=== PATIENT | female | born 1965 | race Caucasian/White ===

== ENCOUNTER 2021-02-08 17:33 | Emergency (ER) | payer MEDICAID, SELFPAY ==
--- NOTE | ~2021-02-08 | XR_ITS ---
EXAMINATION: XR knee RT 3V DATE: 02/08/2021 18:56 INDICATION: Right knee pain TECHNIQUE: Three views of the right knee were obtained. COMPARISON: None. FINDINGS: Alignment is normal. No fracture or osteochondral lesion. There is mild tricompartmental os teoarthritis characterized by tiny marginal osteophytes. No joint effusion/synovitis. Soft tissues a re unremarkable. IMPRESSION: 1. No acute osseous abnormality. Reviewed, dictated and finalized at location A.
[2021-02-08 18:23] VITALS: BP 135/62; PULSE 79; RESP 16; TEMP 36.6; O2SAT 100
--- NOTE | 2021-02-08 19:51 | ED.GENADULT ---
HPI - General Adult General Chief complaint: Extremity Injury, Lower Stated complaint: Fall R Knee Injury Time Seen by Provider: 02/08/21 18:38 Source: patient, family and RN notes reviewed Mode of arrival: ambulatory Limitations: no limitations History of Present Illness HPI narrative: Patient is a 55-year-old female who presents to emergency department for evaluation of right knee pain that began yesterday after twisting the knee while stepping down is since had aching pain along the medial aspect of the knee joint with swelling denies other injuries or complaints presents in no distress denies radicular symptoms or paresthesias has history of ligament damage over 20 years ago has not been seen for this complaint Related Data Home Medications Medication Instructions Recorded Confirmed albuterol sulfate [ProAir HFA] INHALATION 02/08/21 buspirone [BuSpar] 5 mg PO HS 02/08/21 cetirizine [Zyrtec] 10 mg PO DAILY 02/08/21 citalopram [Celexa] 10 mg PO DAILY 02/08/21 Allergies Allergy/AdvReac Type Severity Reaction Status Date / Time No Known Allergies Allergy Verified 02/08/21 18:41 Review of Systems Review of Systems: All systems reviewed & are unremarkable except as noted in HPI and below PMFSH Past Medical History Medical History (Updated 02/08/21 @ 19:53 by Maximus Pickard PA-C) Anxiety Social History Social History Gender identity (if verbalized by the patient): Female Exam Narrative: Exam Narrative: GENERAL: Well-appearing, well-nourished, and in no acute distress. HEAD: Normocephalic, atraumatic. EYES: PERRLA and EOMI. ENT: Nares clear, no rhinorrhea or epistaxis. Mucous membranes moist. EXTREMITIES: Tenderness of the medial aspect of the right knee no deformities noted SKIN: Warm, dry, no rash. NEURO: No focal deficits. Alert and oriented x3. Neurovascularly intact PSYCH: Normal mood and affect. Course Course Emergency Course: Patient presented with right knee pain negative x-rays will be referred to primary care and orthopedics given Mike wrap and crutches Vital Signs Vital signs: Vital Signs Temperature 97.8 F 02/08/21 18:23 Pulse Rate 79 02/08/21 18:23 Respiratory Rate 16 02/08/21 18:23 Blood Pressure 135/62 02/08/21 18:23 Pulse Oximetry 100 02/08/21 18:23 Temperature 97.8 F 02/08/21 18:23 Pulse Rate 79 02/08/21 18:23 Respiratory Rate 16 02/08/21 18:23 Blood Pressure 135/62 02/08/21 18:23 Pulse Oximetry 100 02/08/21 18:23 Medical Decision Making MDM Narrative Medical decision making narrative: Patients injury or pain is consistent with musculoskeletal etiology. No signs of neurological or vascular compromise on exam. Compartments and tisues are soft without signs of compartment syndrome. Pain is felt appropriate for further evaluation on an outpatient basis. Patient made aware of x-ray findings Vital Signs Vital Signs: Vital Signs Temperature 97.8 F 02/08/21 18:23 Pulse Rate 79 02/08/21 18:23 Respiratory Rate 16 02/08/21 18:23 Blood Pressure 135/62 02/08/21 18:23 Pulse Oximetry 100 02/08/21 18:23 Temperature 97.8 F 02/08/21 18:23 Pulse Rate 79 02/08/21 18:23 Respiratory Rate 16 02/08/21 18:23 Blood Pressure 135/62 02/08/21 18:23 Pulse Oximetry 100 02/08/21 18:23 Imaging Data Radiologist's impression: ITS Impressions Knee X-Ray 02/08/21 19:18 IMPRESSION: 1. No acute osseous abnormality. Discharge Plan Discharge Clinical Impression: Acute pain of right knee Patient Disposition: Home, Self-Care Condition: Stable Instructions: Antibiotic Form, Arthralgia (ED) Additional Instructions: Wear brace and use crutches. No weight on the affected leg until able to bear weight without pain. Ice and elevate extremity. Pain medication as needed and directed. Follow up with your doctor for further care in the next 7 days. Mark
[2021-02-08 20:00] VITALS: BP 128/66; PULSE 81; RESP 14; O2SAT 98
== END 2021-02-08 20:00 | disposition home or self-care (01) ==
PROVIDERS: Emergency Provider Emergency Medicine; PCP Nurse Practitioner
DX: M25.561 Pain in right knee (principal); F41.9 Anxiety disorder, unspecified; X50.9XXA Other and unspecified overexertion or strenuous movements or postures, initial encounter
CPT/HCPCS: 73562; 99283

== ENCOUNTER 2022-08-20 12:12 | Emergency (ER) | payer BC, SELFPAY ==
[2022-08-20 12:23] VITALS: BP 146/64; PULSE 73; RESP 16; TEMP 35.9; O2SAT 99
--- NOTE | 2022-08-20 13:08 | ED.URI ---
HPI - URI/Sore Throat General Chief Complaint: Upper Respiratory Infection Stated Complaint: COUGH/SOB Time Seen by Provider: 08/20/22 13:08 Source: patient and RN notes reviewed Mode of arrival: ambulatory Limitations: no limitations History of Present Illness HPI Narrative: 57 y/o female presented for c/o sinus congestion and cough for 4 days. Cough is nonproductive. Denies sob, wheezing, n/v/d/f/c. hx asthma, using albuterol inhaler and taking cetirizine. MD elicited complaint: cough Related Data Home Medications Medication Instructions Recorded Confirmed albuterol sulfate 90 mcg/actuation 1 inh inhalation DIRECTED 08/20/22 08/20/22 aerosol inhaler citalopram 40 mg tablet 40 mg DAILY 08/20/22 08/20/22 hydroxyzine pamoate 25 mg capsule 25 mg TID 08/20/22 08/20/22 rosuvastatin 10 mg tablet 10 mg DAILY 08/20/22 08/20/22 Allergies Allergy/AdvReac Type Severity Reaction Status Date / Time No Known Allergies Allergy Verified 08/20/22 12:45 Review of Systems Review of Systems: ROS per HPI [facility] Past Medical History Medical History Anxiety Social History Social History Gender identity (if verbalized by the patient): Female Exam Narrative: GENERAL: Ill-appearing, nontoxic EYES: PERRLA, conjunctivae clear ENT: Mucous membranes moist. TMs pearly samson with dull light reflex bilaterally right TM with clear effusion; no tragal tenderness. Oropharynx erythematous without lesions or exudate, no drooling, no hoarseness, no trismus, uvula midline. CHEST: Clear to auscultation, breath sounds equal. Frequent moist nonproductive cough No wheezing, rhonchi, rales, or stridor. No respiratory distress, speaks in full sentences. HEART: Regular rate and rhythm. No murmur heard. SKIN: Warm, dry, no rash. NEURO: Alert and oriented x3. PSYCH: Normal mood and affect Course Course Emergency Course: Patient is aware of diagnosis, understands and agrees to treatment plan. Anticipatory guidance given. Patient agrees to follow-up as directed and is aware of reasons to seek care at the emergency department. Portions of this record may have been created with voice recognition software Level of Care: Express Care Visit Vital Signs Vital signs: Vital Signs Temperature 96.7 F L 08/20/22 12:23 Pulse Rate 73 08/20/22 12:23 Respiratory Rate 16 08/20/22 12:23 Blood Pressure 146/64 H 08/20/22 12:23 Pulse Oximetry 99 08/20/22 12:23 Oxygen Delivery Room Air 08/20/22 12:23 Temperature 96.7 F L 08/20/22 12:23 Pulse Rate 73 08/20/22 12:23 Respiratory Rate 16 08/20/22 12:23 Blood Pressure 146/64 H 08/20/22 12:23 Pulse Oximetry 99 08/20/22 12:23 Oxygen Delivery Room Air 08/20/22 12:23 reviewed MDM - URI/Sore Throat MDM Narrative Medical decision making narrative: Advised supportive measures for bronchitis and signs/symptoms to go to the ER. She has albuterol inhaler. Rx steroid. Pt is appropriate for outpt treatment and f/u. Differential Diagnosis Differential diagnosis: Likely upper respiratory infection, sinusitis and viral infection Discharge Plan Discharge Clinical Impression: Viral infection Patient Disposition: Home, Self-Care Condition: Stable Instructions: Acute Bronchitis (ED) Additional Instructions: Acute bronchitis can be contagious because it is usually caused by infection with a virus or bacteria. It is usually for a few days but you can be contagious for up to one week. Avoid crowds until you do not have a fever and symptoms are improved Take medication as directed Recommend Flonase spray and Zyrtec (or Claritin/Rukhsana) over the counter Cough syrup may cause drowsiness; avoid driving or take it at night time. Tylenol 1000mg every 8 hours as needed for pain Symptomatic treatment includes: rest, fluids, and increase humidity of the air at h
== END 2022-08-20 13:23 | disposition home or self-care (01) ==
PROVIDERS: Emergency Provider Nurse Practitioner Family
DX: B34.9 Viral infection, unspecified (principal)
CPT/HCPCS: 99213; G0463

== ENCOUNTER 2022-09-27 13:07 | Emergency (ER) | payer BC, SELFPAY ==
--- NOTE | ~2022-09-27 | XR_ITS ---
EXAMINATION: XR shoulder LT min 2V DATE: 09/27/2022 14:00 INDICATION: Left shoulder pain swelling. TECHNIQUE: 4 views of left shoulder were obtained. COMPARISON: None. FINDINGS: Bone alignment is normal. No fracture. There is mild osteoarthritis of glenohumeral joint a nd acromioclavicular joint characterized by tiny osteophytes. IMPRESSION: 1. Mild polyarticular osteoarthritis. Reviewed, dictated and finalized at location A. UCTION LINE
[2022-09-27 13:21] VITALS: BP 128/73; PULSE 78; RESP 16; TEMP 36.2; O2SAT 99
--- NOTE | 2022-09-27 13:51 | ED.EXTPRO ---
HPI - Extremity Problem General Chief complaint: Extremity Problem,Nontraumatic Stated complaint: L. 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 Patient states that the pain is identical to previous flare-ups of willian barry syndrome. Begins in her shoulder and radiates down into her hand, associated with some left lateral neck pain. No chest pain, shortness of breath, fevers or chills, nausea or vomiting, diaphoresis. No exertional component to pain; pain is worse when lying on her left side and when moving the shoulder. She has attempted tylenol without relief; reports relief with smoking marijuana. She has lupus and avoids NSAIDs. Related Data Home Medications Medication Instructions Recorded Confirmed albuterol sulfate 90 mcg/actuation 1 inh inhalation DIRECTED 08/20/22 08/20/22 aerosol inhaler citalopram 40 mg tablet 40 mg DAILY 08/20/22 08/20/22 hydroxyzine pamoate 25 mg capsule 25 mg TID 08/20/22 08/20/22 rosuvastatin 10 mg tablet 10 mg DAILY 08/20/22 08/20/22 Allergies Allergy/AdvReac Type Severity Reaction Status Date / Time No Known Allergies Allergy Verified 08/20/22 12:45 Review of Systems Review of Systems: Gen.: Denies fevers or chills Eyes: Denies eye pain or visual change ENT: Denies congestion Respiratory: Denies shortness of breath or cough CV: Denies chest pain or palpitations GI: Denies abdominal pain nausea, emesis or diarrhea denies burning, urgency, frequency or hematuria Musculoskeletal: Reports right shoulder pain. Neuro: Denies numbness, tingling, weakness or focal weakness Skin: Denies rash Except as documented, all other systems reviewed and negative PMFSH Past Medical History Medical History Anxiety Social History Social History Gender identity (if verbalized by the patient): Female Exam Narrative: APPEARANCE: Well appearing, no pain in distress, well-nourished. Head: Normocephalic and atraumatic. EYES: PERRLA/EOMI, conjunctivae clear NOSE: No nasal drainage EARS: External ear normal in appearance THROAT: Oropharynx is clear. Mucous membranes are moist. NECK: Supple. No adenopathy, no masses. RESPIRATORY: Airway patent, respirations nonlabored. Clear to auscultation bilaterally, no rales, rhonchi, wheezing. CARDIOVASCULAR: Regular rate and rhythm without murmurs, rubs, or gallops. ABDOMINAL: Normoactive bowel sounds. Soft, nontender, nondistended. No rebound tenderness or guarding. MUSCULOSKELETAL: Tender to palpation along left scapula, full range of motion in shoulder without pain. No deformity noted. Strong distal pulses. Spurling's test negative. No midline tenderness along C,T or L-spine. NEURO: Normal speech. No focal neurologic deficits. SKIN: Skin is warm and dry. No rashes. PSYCHIATRIC: Normal affect/mood.. Course Vital Signs Vital signs: Vital Signs Temperature 97.1 F L 09/27/22 13:21 Pulse Rate 78 09/27/22 13:21 Respiratory Rate 16 09/27/22 13:21 Blood Pressure 128/73 09/27/22 13:21 Pulse Oximetry 99 09/27/22 13:21 Oxygen Delivery Room Air 09/27/22 13:21 Temperature 97.1 F L 09/27/22 13:21 Pulse Rate 70 09/27/22 15:17 Respiratory Rate 16 09/27/22 15:17 Blood Pressure 128/73 09/27/22 13:21 Pulse Oximetry 100 09/27/22 15:17 Oxygen Delivery Room Air 09/27/22 13:21 MDM - Extremity (Nontraumatic) MDM Narrative Medical decision making narrative: 57-year-old female here for evaluation of left shoulder pain over the past several days that she attributes to a flareup of Willian Barry syndrome . She is nontoxic-appearin
[2022-09-27] MEDS: HYDROcodone/acetaminophen (*CRX) 5-325 MG TABLET 1 TAB PO (14:40)
[2022-09-27] MEDS: LIDOCAINE 5% PATCH 1 PATCH TRANSDERM (14:40)
[2022-09-27 15:17] VITALS: PULSE 70; RESP 16; O2SAT 100
== END 2022-09-27 15:17 | disposition home or self-care (01) ==
PROVIDERS: Emergency Provider Physician Assistant
DX: M25.512 Pain in left shoulder (principal); F41.9 Anxiety disorder, unspecified; M19.012 Primary osteoarthritis, left shoulder
CPT/HCPCS: 73030; 99283; A9270

== ENCOUNTER 2024-03-08 13:02 | Emergency (ER) | payer MEDICAID, SELFPAY ==
--- NOTE | ~2024-03-08 | XR_ITS ---
EXAMINATION: XR chest 2V DATE: 03/08/2024 13:27 INDICATION: Midsternal chest pain. TECHNIQUE: Frontal and lateral views of the chest were obtained. COMPARISON: None. FINDINGS: There is no pneumonia, pleural effusion, or pneumothorax. The heart size is normal. IMPRESSION: 1. No acute cardiopulmonary disease. Reviewed, dictated and finalized at location E.
--- NOTE | 2024-03-08 13:10 | ECG_ITS ---
Test Date: 2024-03-08 13:16:09 Measurements Intervals [place] Rate: 78 P: 56 OR: 179 QRS: 61 QRSD: 79 T: 73 QT: 364 QTc: 417 Interpretive Statements SINUS RHYTHM NORMAL ELECTROCARDIOGRAM No previous ECG available for comparison Electronically Signed On 03-08-2024 15:31:02 CDT by Collins Bhakta M.D.
[2024-03-08 13:19] VITALS: BP 143/65; PULSE 79; RESP 18; TEMP 36.2; O2SAT 99
[2024-03-08] MEDS: ASPIRIN 81 MG CHEWABLE TABLET 324 MG PO (13:30)
[2024-03-08 13:32] VITALS: PULSE 91
[2024-03-08 13:34] VITALS: BP 157/87; PULSE 78; RESP 12; O2SAT 99
[2024-03-08 14:14] LABS: Hematocrit 41.7 % (37.0-47.0); Mean Corpuscular HGB Conc 33.6 g/dl (32-36); Mean Corpuscular Hemoglobin 27.7 pg (26-34); Mean Corpuscular Volume 82.6 fl (80-100); Mean Platelet Volume 11.9 fl (7.4-10.4); Platelet Count Result 239 k/mm3 (150-375); Red Blood Count 5.05 M/mm3 (4.2-5.4); Red Cell Distribution Width 13.2 % (11.5-14.5); White Blood Count 5.8 K/mm3 (4.5-10.0)
[2024-03-08 14:23] LABS: Alanine Aminotransferase 15 U/L (6-35); Albumin Level 4.6 g/dL (3.5-5.1); Alkaline Phosphatase 86 U/L (38-126); Anion Gap 6 mmol/L (4-12); Aspartate Amino Transferase 24 U/L (14-36); Bilirubin,Total 0.6 mg/dL (0.2-1.3); Blood Urea Nitrogen 14 mg/dL (7-17); Calcium 9.5 mg/dL (8.4-10.2); Carbon Dioxide 26 mmol/L (22-30); Chloride 108 mmol/L (98-107); Estimated CRCL calculation 58 ml/min; Estimated Glomerular Filt Rate > 60; Glucose 90 mg/dL (65-110); Lipase 174 U/L (23-300); Potassium 4.1 mmol/L (3.4-5.0); Sodium 140 mmol/L (137-145)
--- NOTE | 2024-03-08 14:24 | ED.GENADULT ---
HPI - General Adult General Chief complaint: Chest Pain Stated complaint: chest pain Time Seen by Provider: 03/08/24 13:32 History of Present Illness HPI narrative: 58-year-old female presented emergency department for evaluation of intermittent substernal chest pain. Patient reports last night she had onset left substernal chest pain. Patient reports pain of present last night was present when she woke up this morning and patient states the pain has since resolved. Patient denies any radiation of the pain to her back neck or arms. Patient does have prior history of lupus, patient does report a significant family history of coronary artery disease but denies any personal history of coronary artery disease. Patient denies any prior history of PE or DVT. Related Data Home Medications Medication Instructions Recorded Confirmed albuterol sulfate 90 mcg/actuation 1 inh inhalation DIRECTED 08/20/22 08/20/22 aerosol inhaler citalopram 40 mg tablet 40 mg DAILY 08/20/22 08/20/22 hydroxyzine pamoate 25 mg capsule 25 mg TID 08/20/22 08/20/22 rosuvastatin 10 mg tablet 10 mg DAILY 08/20/22 08/20/22 Allergies Allergy/AdvReac Type Severity Reaction Status Date / Time No Known Allergies Allergy Verified 08/20/22 12:45 Review of Systems Review of Systems: All systems reviewed & are unremarkable except as noted in HPI and below PMFSH Past Medical History Medical History Anxiety Social History Social History Gender identity (if verbalized by the patient): Female Exam Narrative: APPEARANCE: Well appearing, no pain, no distress, well-nourished. HEAD: normocephalic, atraumatic. EYES: PERRLA/EOMI, conjunctivae clear. NOSE: Normal no drainage NECK: Supple. No adenopathy, no masses. RESPIRATORY: Airway patent, respirations nonlabored. Clear to auscultation bilaterally, no rales, rhonchi, wheezing. CARDIOVASCULAR: Regular rate and rhythm without murmurs rubs or gallops. ABDOMINAL: Soft, nontender, nondistended, normal bowel sounds MUSCULOSKELETAL: Reproducible left-sided sternal tenderness to palpation NEURO: Alert. Cranial nerves II through XII intact. Grossly intact SKIN: Warm, dry. Normal Color Course Course Emergency Course: Patient was updated results of her workup patient is comfortable the plan for discharge and close follow-up. Vital Signs Vital signs: Vital Signs Temperature 97.1 F L 03/08/24 13:19 Pulse Rate 79 03/08/24 13:19 Respiratory Rate 18 03/08/24 13:19 Blood Pressure 143/65 H 03/08/24 13:19 Pulse Oximetry 99 03/08/24 13:19 Oxygen Delivery Room Air 03/08/24 13:19 Temperature 97.1 F L 03/08/24 13:19 Pulse Rate 86 03/08/24 16:20 Respiratory Rate 18 03/08/24 16:20 Blood Pressure 145/74 H 03/08/24 16:20 Pulse Oximetry 98 03/08/24 16:20 Oxygen Delivery Room Air 03/08/24 13:19 Medical Decision Making MDM Narrative Medical decision making narrative: 58-year-old female presenting to the emergency department for evaluation of left sternal chest pain. Patient is afebrile with no leukocytosis and a stable hemoglobin. Patient has no acute abnormalities on her CMP, patient's D-dimer was not elevated her INR was 1.0. Patient had negative serial troponins. Chest x-ray showed no acute cardiopulmonary abnormality. EKG showed normal sinus rhythm. Low concern for ACS. Suspect costochondritis. Low concern for pulmonary embolism. Patient was updated the results of her workup patient was encouraged of close follow-up with her primary care physician for additional outpatient cardiac testing. Differential Diagnosis Differential Diagnosis: Costochondritis, pleurisy, ACS, pulmonary embolism, pneumonia, pneumothorax Vital Signs Vital Signs: Vital Signs Temperature 97.1 F L 03/08/24 13:19 Pulse Rate 79 03/08/24 13:19 Respiratory Rate 18 06
[2024-03-08 14:27] LABS: Prothrombin Time 13.5 Seconds (11.1-14.7)
[2024-03-08 14:28] LABS: Partial Thromboplastin Time 25.3 Seconds (22.3-36.8)
[2024-03-08 14:34] LABS: Troponin I < 0.012 ng/mL (0.000-0.034)
[2024-03-08 15:05] LABS: Eosinophils Absolute Manual 0.87 K/mm3 (0.02-0.50); Eosinophils Percent Manual 15 % (0-4); Lymphocytes Absolute Manual 1.68 K/mm3 (1.1-4.5); Monocytes Absolute Manual 0.29 K/mm3 (0.1-0.90); Monocytes Percent Manual 5 % (3-9); Neutrophils Percent Manual 51 % (46-73); Platelet Estimate Adequate (Adequate); Total Cells Counted 100
[2024-03-08 15:06] LABS: Schistocytes None Seen
[2024-03-08 15:14] LABS: D Dimer < 0.27 ug/mL (<0.48)
[2024-03-08 15:22] VITALS: BP 140/64; PULSE 73; RESP 19; O2SAT 99
[2024-03-08] MEDS: ACETAMINOPHEN 325 MG TABLET 650 MG PO (15:41)
--- NOTE | 2024-03-08 16:07 | ECG_ITS ---
Test Date: 2024-03-08 16:13:54 Measurements Intervals [place] Rate: 71 P: 48 [place]: 180 QRS: 49 QRSD: 86 T: 75 QT: 394 QTc: 429 Interpretive Statements SINUS RHYTHM Compared to ECG 03/08/2024 13:16:09 No significant changes Electronically Signed On 03-09-2024 11:45:26 CDT by Ki Montoya M.D.
[2024-03-08 16:20] VITALS: BP 145/74; PULSE 86; RESP 18; O2SAT 98
[2024-03-08 16:43] LABS: Troponin I < 0.012 ng/mL (0.000-0.034)
== END 2024-03-08 17:54 | disposition home or self-care (01) ==
PROVIDERS: Emergency Provider Emergency Medicine; PCP Family Medicine
DX: R07.89 Other chest pain (principal); F41.9 Anxiety disorder, unspecified
CPT/HCPCS: 36415; 71046; 80053; 83690; 84484; 85025; 85380; 85610; 85730; 93005; 99284; A9270

== ENCOUNTER 2025-03-08 13:24 | Observation (INO) | payer OTHER, SELFPAY ==
[2025-03-08] VITALS (15 sets, daily range): BP systolic 103–167; BP diastolic 63–94; PULSE 77–118; RESP 12–30; TEMP 36.5–36.9; O2SAT 97–100; BMI 33.3
--- NOTE | ~2025-03-08 | XR_ITS ---
XR chest 2V Ordering provider: Marco A Saunders MD History: 59 years Female with . chest pain . Comparison: March 08, 2024 FINDINGS: MEDIASTINUM: The cardiac silhouette is not enlarged. LUNGS: No infiltrates, effusions or pneumothorax. OTHER: No free air under the diaphragm. IMPRESSION: No acute cardiopulmonary pathology. Reviewed, dictated and finalized at location A.
--- NOTE | 2025-03-08 13:26 | ECG_ITS ---
Test Date: 2025-03-08 13:32:41 Measurements Intervals [place] Rate: 108 P: 55 NV: 211 QRS: 47 QRSD: 79 T: 55 QT: 334 QTc: 449 Interpretive Statements SINUS TACHYCARDIA WITH FIRST DEGREE AV BLOCK BASELINE ARTIFACT- I, III, AVR ABNORMAL ECG Compared to ECG 03/08/2024 16:13:54 HEART RATE HAS INCREASED Electronically Signed On 03-08-2025 14:12:17 CDT by Janak Degroot D.O.
[2025-03-08] MEDS: ASPIRIN 81 MG CHEWABLE TABLET 324 MG PO (13:50)
[2025-03-08 13:53] LABS: Basophils Percent Auto 0.4 % (0.2-1.2); Eosinophils Absolute Auto 0.2 K/mm3 (0-0.3); Eosinophils Percent Auto 4.2 % (0-4.4); Hematocrit 42.8 % (37.0-47.0); Immature Granulocyte Absolute 0.01 K/mm3 (0.00-0.031); Immature Granulocyte Percent A 0.2 % (0-0.5); Lymphocytes Percent Auto 25.6 % (18.3-44.2); Mean Corpuscular HGB Conc 32.7 g/dl (32-36); Mean Corpuscular Hemoglobin 27.1 pg (26-34); Mean Corpuscular Volume 82.8 fl (80-100); Mean Platelet Volume 10.7 fl (7.4-10.4); Monocytes Absolute Auto 0.3 K/mm3 (0.1-0.6); Monocytes Percent Auto 4.9 % (2.6-8.5); Neutrophils Absolute Auto 3.5 K/mm3 (1.3-6.7); Neutrophils Percent Auto 64.7 % (45.5-73.1); Platelet Count Result 218 k/mm3 (150-375); Red Blood Count 5.17 M/mm3 (4.2-5.4); Red Cell Distribution Width 13.6 % (11.5-14.5); White Blood Count 5.5 K/mm3 (4.5-10.0)
[2025-03-08 14:03] LABS: Alanine Aminotransferase 18 U/L (6-35); Albumin Level 4.1 g/dL (3.5-5.1); Alkaline Phosphatase 81 U/L (38-126); Anion Gap 9 mmol/L (4-12); Aspartate Amino Transferase 26 U/L (14-36); Bilirubin,Total 0.4 mg/dL (0.2-1.3); Blood Urea Nitrogen 13 mg/dL (7-17); Calcium 9.1 mg/dL (8.4-10.2); Carbon Dioxide 21 mmol/L (22-30); Chloride 109 mmol/L (98-107); Estimated CRCL calculation 63 ml/min; Estimated Glomerular Filt Rate > 60; Glucose 98 mg/dL (65-110); Lipase 223 U/L (23-300); Potassium 3.7 mmol/L (3.4-5.0); Sodium 139 mmol/L (137-145); Total Protein 7.4 g/dL (6.3-8.2)
[2025-03-08] MEDS: SODIUM CHLORIDE 0.9% IV 1,000 ML 999 ML IV CONT (14:03)
[2025-03-08 14:06] LABS: Partial Thromboplastin Time 25.8 Seconds (22.3-36.8); Prothrombin Time 13.6 Seconds (11.1-14.7)
[2025-03-08 14:15] LABS: Troponin I < 0.012 ng/mL (0.000-0.034)
[2025-03-08 14:31] LABS: Magnesium 1.9 mg/dL (1.6-2.3)
--- NOTE | 2025-03-08 14:37 | ED.ARRPALP ---
HPI - Arrhythmia/Palpitations General Chief Complaint: Arrhythmia/Palpitations Stated Complaint: CP - self-converted SVT Time Seen by Provider: 03/08/25 13:58 Source: patient Mode of arrival: ambulatory Limitations: no limitations History of Present Illness HPI narrative: Patient is a 59 y/o female, with PMH of anxiety/depression, who presents to the ED via EMS with report of palpations/CP. Patient reports she was walking through [employer] when she began feeling dizzy, lightheaded, diaphoretic, nauseous, short of breath, CP, near-syncopal. She went out to her car. Began having worsening SOB, CP. EMS was called. Upon EMS's arrival, she was noted to be in SVT with HRs in the 240s. Patient denied feeling palpitations. EMS was about to administer adenosine before patient spontaneously converted to sinus tachy. Patient feeling improved currently. Denies current CP, SOB. Denies current dizziness. Denies previous history of heart issues. States she has had intermittent palpitations in the past which have always been very brief. Has never had SVT before that she is aware of. Denies recent cough or cold sx's, pain/swelling in legs, fevers. Related Data Home Medications ?Medication ?Instructions ?Recorded ?Confirmed ?Last Taken ?Type albuterol sulfate 90 mcg/actuation 1 inh inhalation DIRECTED 08/20/22 08/20/22 Unknown History aerosol inhaler citalopram 40 mg tablet 40 mg DAILY 08/20/22 08/20/22 Unknown History hydroxyzine pamoate 25 mg capsule 25 mg TID 08/20/22 08/20/22 Unknown History rosuvastatin 10 mg tablet 10 mg DAILY 08/20/22 08/20/22 Unknown History Allergies Allergy/AdvReac Type Severity Reaction Status Date / Time No Known Allergies Allergy Verified 08/20/22 12:45 Review of Systems Review of Systems: All systems reviewed & are unremarkable except as noted in HPI. All systems reviewed & are unremarkable except as noted in HPI and below PMFSH Past Medical History Medical History Anxiety Social History Social History Gender identity (if verbalized by the patient): Female Exam Narrative: GENERAL: Anxious appearing, well-nourished, non-toxic, in no acute distress. HEAD: Normocephalic, atraumatic. RESPIRATORY: Airway patent, respirations nonlabored. Clear to auscultation bilaterally, no rales, rhonchi, wheezing. No focal lung sounds. CARDIOVASCULAR: Borderline tachycardic with regular rhythm without murmurs, rubs, or gallops. MUSCULOSKELETAL: Moves all extremities. No gross deformities. SKIN: Warm, dry, normal color. NEURO: A&O X3. Speech clear. Cranial nerves II-XII grossly intact. Steady gait. Diffusely tremulous, no ataxic movements. PSYCHIATRIC: Appropriate mood and affect. Normal interaction. Course Vital Signs Vital signs: Vital Signs Temperature 98.0 F 03/08/25 13:27 Pulse Rate 118 H 03/08/25 13:27 Respiratory Rate 16 03/08/25 13:27 Blood Pressure 155/94 H 03/08/25 13:27 Pulse Oximetry 99 03/08/25 13:27 Oxygen Delivery Room Air 03/08/25 13:27 Temperature 98.0 F 03/08/25 13:27 Pulse Rate 95 03/08/25 15:21 Respiratory Rate 14 03/08/25 15:21 Blood Pressure 143/88 H 03/08/25 13:46 Pulse Oximetry 99 03/08/25 15:21 Oxygen Delivery Room Air 03/08/25 13:27 MDM - Arrhythmia/Palpitations MDM Narrative Medical decision making narrative: Patient presented to ED with palpitations, CP/SOB, reportedly found to be in SVT by EMS. Reportedly spontaneously converted prior to arrival. No telemetry reports from EMS to review. Patient very mildly tachycardic upon arrival. Sinus on monitor and EKG. No significant concerning ischemic changes. Patient feeling improved currently. Laboratory studies are otherwise reassuring. No leukocytosis or anemia. CMP is unremarkable. Stable electrolytes. Stable kidney function. Normal magnesium. TSH within normal range. Troponin undetectable. Chest x-ray is clear. Repeat EKG at 3 hr azeem without concerning ischemic changes however 3 hour troponin did result elevated at 0.041. She is reporting intermittent trouble breathing since being in the ED, but continues to deny CP at this time. Given elevated troponin in the presence of chest pain today, possible but not definitive SVT, will admit for further cardiac eval, continued trending of trops. Discussed case with Tianna Solorzano NP hospitalist, accepted patient for admission. Patient and family in agreement with plan and need for admission. Medical Records Attestation: I reviewed the patient's medical records. Lab Data Attestation: I reviewed the patient's lab results. 03/08/25 13:47 03/08/25 13:47 Labs: Lab Results 03/08/25 03/08/25 Range/Units 13:47 16:34 WBC 5.5 (4.5-10.0) K/mm3 RBC 5.17 (4.2-5.4) M/mm3 Hgb 14.0 (12.0-15.0) g/dL Hct 42.8 (37.0-47.0) % MCV 82.8 (80-100) fl MCH 27.1 (26-34) pg MCHC 32.7 (32-36) g/dl RDW 13.6 (11.5-14.5) % Plt Count 218 (150-375) k/mm3 MPV 10.7 H (7.4-10.4) fl Immature Gran % (Auto) 0.2 (0-0.5) % Neut % (Auto) 64.7 (45.5-73.1) % Lymph % (Auto) 25.6 (18.3-44.2) % [place] % (Auto) 4.9 (2.6-8.5) % Eos % (Auto) 4.2 (0-4.4) % Baso % (Auto) 0.4 (0.2-1.2) % Lymph # (Auto) 1.40 (0.9-3.2) K/mm3 [place] # (Auto) 0.3 (0.1-0.6) K/mm3 Eos # (Auto) 0.2 (0-0.3) K/mm3 Baso # (Auto) 0.0 (0.0-0.1) K/mm3 Abs Immat Gran (auto) 0.01 (0.00-0.031) K/mm3 Absolute Neuts (auto) 3.5 (1.3-6.7) K/mm3 Absolute Nucleated RBC 0.000 (0.0-0.012) K/mm3 Nucleated RBC % 0.0 (0.0-0.2) % PT 13.6 (11.1-14.7) Seconds INR 1.0 APTT 25.8 (22.3-36.8) Seconds D-Dimer 0.33 (<0.48) ug/mL Sodium 139 (137-145) mmol/L Potassium 3.7 (3.4-5.0) mmol/L Chloride 109 H (98-107) mmol/L Carbon Dioxide 21 L (22-30) mmol/L Anion Gap 9 (4-12) mmol/L BUN 13 (7-17) mg/dL Creatinine 0.81 (0.7-1.0) mg/dL Estim Creat Clear Calc 63 ml/min Estimated GFR > 60 (59 - ) Glucose 98 (65-110) mg/dL Calcium 9.1 (8.4-10.2) mg/dL Magnesium 1.9 (1.6-2.3) mg/dL Total Bilirubin 0.4 (0.2-1.3) mg/dL AST 26 (14-36) U/L ALT 18 (6-35) U/L Alkaline Phosphatase 81 (38-126) U/L Troponin I < 0.012 0.041 H* D (0.000-0.034) ng/mL Total Protein 7.4 (6.3-8.2) g/dL Albumin 4.1 (3.5-5.1) g/dL Lipase 223 (23-300) U/L TSH 2.870 (0.465-4.680) uIU/mL Urine Color Yellow (Yellow) Urine Appearance Clear (Clear) Urine pH 7.0 (5.0-9.0) Ur Specific [place] 1.009 (1.001-1.035) Urine Protein Negative (Negative) mg/dL Urine Glucose (UA) Negative (Negative) mg/dL Urine Ketones Negative (Negative) mg/dL Ur Blood (Man) Negative (Negative) Urine Nitrate Negative (Negative) Urine Bilirubin Negative (Negative) Urine Urobilinogen 0.2 (<2.0) mg/dL Leukocyte Esterase Rfl Trace H (Negative) TONYA/UL Urine RBC 0-2 (0-2) /hpf Urine WBC 0-5 (0-3) /hpf Ur Squamous Epith Cells None seen (Few) /hpf Urine Bacteria None seen /hpf Urine Casts 0-2 Urine Opiates Screen Negative (Negative) Urine Methadone Screen Negative (Negative) Ur Barbiturates Screen Negative (Negative) Ur Phencyclidine Scrn Negative (Negative) Ur Amphetamine Screen Negative (Negative) U Benzodiazepines Scrn Negative (Negative) Urine Cocaine Screen Negative (Negative) U Cannabinoids Screen Positive A (Negative) Imaging Data Attestation: I personally reviewed and interpreted this imaging study as follows: Radiologist's impression: ITS Impressions Chest X-Ray 03/08/25 14:47 IMPRESSION: No acute cardiopulmonary pathology. ECG Data EKG #1: Attestation: I personally reviewed and interpreted this ECG as follows: ECG completion date: 03/08/25 ECG completion time: 13:32 EKG Interpretation: tachycardia (108), sinus rhythm (first degree AV block) and non-specific ST changes Discharge Plan Discharge Clinical Impression: Elevated troponin, Supraventricular tachycardia, Near syncope Chest pain Qualifiers: Chest pain type: unspecified Qualified Code(s): R07.9 - Chest pain, unspecified Patient Disposition: Still a Patient Condition: Stable Patient Language: Peruvian Prescriptions: No Action citalopram 40 mg tablet 40 mg DAILY albuterol sulfate 90 mcg/actuation HFA aerosol inhaler 1 inh INHALATION DIRECTED hydroxyzine pamoate 25 mg capsule 25 mg TID rosuvastatin 10 mg tablet 10 mg DAILY benzonatate 200 mg capsule 200 mg PO TID PRN (Reason: cough) Qty: 20 0RF methylprednisolone [Medrol (Carmelo)] 4 mg tablets,dose pack See Rx Instructions .ROUTE .COMPLEX Qty: 21 0RF Rx Instructions: orally per package directions Follow-up/Referrals: Harms,Philippe Eddy M.D. [Primary Care Provider] -
[2025-03-08 15:10] LABS: D Dimer 0.33 ug/mL (<0.48)
--- OUTSIDE RECORDS SUMMARY | 2025-03-08 15:39 | XMS_ITS | Encounter Summary ---
Author Organization [facility] Healthcare Address [address] [place] [address] Care Team Providers Care Panel Monitor Name Role Phone Philippe Garcia MD Primary Care Provider [phone] Reason for Visit * Reason Onset Date Comments Symptom Based Call 02/11/2025 Encounter Details Date Type Department Care Team (Late st Contact Info) Description 02/11/2025 Telephone [facility] [address] [id number] Phiilppe Garcia MD [address] [place] [id number] Symptom Based Call Social History Tobacco Use Types Packs/Day Years Used Date Smoking Tobacco: Never Smokeless Tobacco: Never Alcohol Use Standard Drinks/Week Comments Yes 0 (1 standard drink = 0.6 oz pur e alcohol) AUDIT-C Answer Date Recorded Q1: How often do you have a drink containing alcohol? Never 05/21/2024 Q2: How many drinks containi ng alcohol do you have on a typical day when you are drinking? Patient does not drink Q3: How often do you have si x or more drinks on one occasion? 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 Thanks * Telephone Encounter - Sree December - 02/11/2025 9:38 AM CDT Symptom Based Call Chief Complaint(s): thrush in mouth/ white coat on tongue Duration: 1 dya What type of symptom(s) is the patient experiencing? Non-Emergent. Is this a new or reoccurring symptom(s)? new What have you tried to help your symptom(s)? Nothing Why was appointment not scheduled? Patient seeking care without an appointment; appointment was offered by [facility]. Additional Comments: please call/ patient wanted medication to be sent / I looked for an appointment Does message need to be routed? Yes-Action Needed documented in this encounter Plan of Treatment Not on file documented as of this encounter Visit Diagnoses Not on filedocumented in this encounter Care Teams Panel Monitor Relationship Specialty Start Date End Date Philippe Garcia MD [address] [place] [address] PCP - General Family Medicine 01/21/23 documented as of this encounter
--- OUTSIDE RECORDS SUMMARY | 2025-03-08 15:39 | XMS_ITS | Referral Summary ---
Author Organization [facility] Address [address] [place] [phone] Care Team Providers Care Acquisition Consultant Name Role Phone Philippe Garcia MD Primary Care Provider [phone] Encounters Date Type Department Care Team Description 02/11/2025 Orders Only [facility] [address] [phone] Philippe Garcia MD 02/11/2025 Telephone [facility] [address] [phone] Philippe Garcia MD Symptom Based Call 02/04/2025 9:39 AM CDT - 02/04/2025 11:59 PM CDT Hospital En[facility] [address] [place] [phone] Discharge Disposition: Discharge to home or self care 02/04/2025 9:39 AM CDT - 02/04/2025 11:59 PM CDT Hospital Encounter [facility] [address] [place] [phone] Discharge Disposition: Discharge to home or self care 02/04/2025 9:30 AM CDT Office Visit [facility] at [address] [phone] Jocelin John PA Nontraumatic tear of left rotator cuff, unspecified tear extent (Primary Dx); Neck pain 01/19/2025 Telephone [facility] [address] [phone] Philippe Garcia MD Medication Request 12/15/2024 Orders Only [facility] [address] [phone] Philippe Garcia MD 12/14/2024 Telephone [facility] [address] [phone] Philippe Garcia MD Symptom Based Call from Last 3 Months Allergies Active Allergy Reactions Criticality Noted Date Comments Cigarette Smoke Eye irritation Low 01/14/2023 Grass Pollen Eye irritation,Sneezing Low 01/14/2023 Latex Rash Medium 02/08/2019 Latex powder Medications cetirizine (ZyrTEC) 10 mg tablet TAKE 1 TABLET BY MOUTH DAILY 90 tablet 01/24/20 22 Active albuterol HFA (ProAir HFA) 90 mcg/actuation inhalerIndicat ions:wheezing inhale 2 puff by inhalation route every 4 - 6 hours as needed 1 each 5 04/05/20 24 Active rosuvastatin (CRESTOR) 10 mg tablet Take 1 tablet (10 mg total) by mouth daily 90 tablet 3 04/15/20 24 025 Active albuterol 2.5 mg /3 mL (0.083 %) nebulizer solution INHALE THE CONTENTS OF 1 VIAL VIA NEBULIZER 4 TIMES DAILY NEEDED FOR WHEEZE/SHORTNE SS OF BREATH 300 mL 2 08/18/20 24 Active benzonatate (TESSALON) 100 mg capsuleIndicat ions:Cough Take 1 capsule (100 mg total) by mouth 3 (three) times a day as needed for cough 42 capsule 11/30/19 25 Active hydrOXYzine (VISTARIL) 25 mg capsule TAKE 1 CAPSULE BY MOUTH 3 TIMES A DAY NEEDED FOR ANXIETY 270 capsule 1 12/10/19 25 Active citalopram (CeleXA) 10 mg tablet Take 0.5 tablets (5 mg total) by mouth daily 90 tablet 4 05/01/20 25 026 Active methylPREDNISo lone (MEDROL DOSEPACK) 4 mg DosepackIndica tions:Anti-inf lammatory follow package directions 21 tablet 02/05/20 25 Active cyclobenzaprin e (FLEXERIL) 10 mg tabletIndicati ons:Muscle Spasm Take 1 tablet (10 mg total) by mouth 3 (three) times a day as needed for muscle spasms 30 tablet 02/05/20 25 Active nystatin 100,000 unit/mL suspension Take 5 mL (500,000 Units total) by mouth 4 (four) times a day Swish in mouth and spit out. 280 mL 02/12/20 25 025 Active ergocalciferol (VITAMIN D) 50,000 unit capsule Take 1 capsule by mouth once a week 8 capsule 02/22/20 25 Active traMADoL (ULTRAM) 50 mg tablet TAKE 1 TABLET BY MOUTH EVERY 6 HOURS 20 tablet 02/22/20 25 Active ergocalciferol (VITAMIN D) 50,000 unit capsule Take 1 capsule (50,000 Units total) by mouth once a week 12 capsule 1 04/15/20 24 025 Discontinued traMADoL (ULTRAM) 50 mg tablet Take 1 tablet (50 mg total) by mouth every 6 (six) hours 20 tablet 12/16/19 25 025 Discontinued Active Problems Problem Noted Date Diagnosed Date Viral URI with cough 11/29/2024 Assessment & Plan (11/29/2024 2:22 PM CDT): Swabs negative for flu, COVID, RSV today. Reviewed home care measures. Also refilled Tessalon. Liberalize albuterol use for the next 2 days. Make sure to drink plenty of fluids and rest. If worsening or not resolving RTC. Red flags reviewed. Vitamin D deficiency 11/29/2024 Assessment & Plan (11/29/2024 2:22 PM CDT): Vitamin-D level ordered. Will plan accordingly once results are received. Mild intermittent asthma with exacerbation 07/07 Assessment & Plan (07/07/2024 11:45 AM CDT): Liberalize albuterol inhaler use. Will send in prednisone taper. Tessalon also E scribed. Push p.o. hydration. RTC if worsening or not resolving. Red flags reviewed. Fibromyalgia 06/22/2024 Assessment & Plan (07/07/2024 11:44 AM CDT): Difficulty getting duloxetine from the pharmacy. We will call the pharmacy today. Will continue to monitor. She is following with Rheumatology as well. Assessment & Plan (06/22/2024 12:34 PM CDT): New diagnosis. Will stop fluoxetine and start duloxetine. Reviewed conservative measures. Information printed. She is following with Rheumatology as well. Follow-up as scheduled in September to monitor response. Of course sooner for any concerns. Acute pain of right knee 05/04/2024 Acute shoulder pain 05/04/2024 Atypical chest pain 05/04/2024 Viral infection 05/04/2024 Screening mammogram for breast cancer 04/05/2024 Assessment & Plan (04/05/2024 10:59 AM CDT): Mammogram ordered. Will plan accordingly once results are received. Colon cancer screening 04/05/2024 Assessment & Plan (04/05/2024 11:01 AM CDT): Referral to GI for colonoscopy. IFG (impaired fasting glucose) 04/05/2024 Assessment & Plan (11/29/2024 2:23 PM CDT): Fasting glucose 86 when last checked. Will continue to monitor. Assessment & Plan (04/05/2024 11:02 AM CDT): Reports history of impaired fasting glucose. Will check A1c with next set of labs. Impacted cerumen of left ear 04/05/2024 Assessment & Plan (04/05/2024 10:52 AM CDT): Canal cleared. RTC for any recurrent concerns. BMI 29.0-29.9,adult 12/06/2020 Assessment & Plan (12/06/2020 9:48 AM CDT): - BMI too high, counseled on dietary approaches to lowering BMI, exercise approaches to lowering BMI, risk to health due to elevated BMI, healthy BMI level to trend toward. Biceps tendinitis, left 01/28/2020 Nontraumatic tear of left rotator cuff 9 Neck pain 02/02/2019 Pure hyperglyceridemia 10/19/2018 Assessment & Plan (07/07/2024 11:44 AM CDT): Continue with rosuvastatin. Will check lipid panel with next set of labs. Assessment & Plan (04/05/2024 10:39 AM CDT): Has not taken crestor for one year. Lipid panel ordered. Will plan accordingly once results received. Assessment & Plan (10/19/2018 12:54 PM CATERING ASSOCIATE): - continue to work toward eating more fiber, fresh vegetables and fruits - continue to work toward eating less meat, less fried foods, less fat - increase activity as tolerated - continue medications for cholesterol reduction. Positive HAYLEE (antinuclear antibody) 10/14/2017 Assessment & Plan (10/19/2017 8:41 PM CATERING ASSOCIATE): Encouraged to see pediatric physical therapy assistant for evaluation. Restless leg syndrome 03/04/2017 Assessment & Plan (10/19/2017 8:40 PM CATERING ASSOCIATE): Plan to start Neurontin 300 mg at directed. Assessment & Plan (03/05/2017 7:12 PM CDT): Has been awakening at night due to leg cramping and discomfort. Plan to start Elavil 25mg at [facility]. Will check Vitamin B12 and ferritin level. Anxiety 03/04/2017 Assessment & Plan (04/05/2024 10:37 AM CDT): Restart citalopram. Can uptitrate to 20mg daily after 4 weeks if needed. Will monitor response. Red flags reviewed. Assessment & Plan (12/06/2020 9:48 AM CDT): continue citalopram Condition stable Assessment & Plan (03/24/2019 11:11 AM CDT): - continue current medications and follow up for any changes Assessment & Plan (10/19/2018 12:55 PM CATERING ASSOCIATE): - condition stable - continue current medications Assessment & Plan (03/30/2018 7:05 AM CDT): - she will continue her citalopram and buspirone Assessment & Plan (10/19/2017 8:39 PM CATERING ASSOCIATE): Controlled with Citalopram-will continue at 40 mg daily. Assessment & Plan (03/05/2017 7:12 PM CDT): Continues on Citalopram. Using Xanax prn. Primary insomnia 03/04/2017 Assessment & Plan (10/19/2017 8:42 PM CATERING ASSOCIATE): Hope will improve with addition of gabapentin. Assessment & Plan (03/05/2017 7:13 PM CDT): Hope will improve with elavil started. Discussed sleep hygiene Rhinitis 02/05/2014 Overview (12/27/2016): Rhinitis Asthma 02/05/2014 Overview (12/26/2016): Asthma Assessment & Plan (04/05/2024 10:38 AM CDT): Continue PRN albuterol. Well controlled. Requesting referral to Pulmonology. Referral placed. Red flags reviewed. Assessment & Plan (03/24/2019 11:12 AM CDT): Will refill albuterol, if any worsening return to clinic for evaluation Assessment & Plan (10/19/2018 12:55 PM CATERING ASSOCIATE): - condition stable - continue current medications Assessment & Plan (10/19/2017 8:40 PM CATERING ASSOCIATE): Asthma is stable. Allergies have been stable. The patient is experiencing no daytime asthma symptoms. She is experiencing no nighttime asthma symptoms. Discussed monitoring symptoms and use of quick-relief medications and contacting us early in the course of exacerbations. Warning signs of respiratory distress were reviewed with the patient. Assessment & Plan (03/05/2017 7:13 PM CDT): Asthma is unchanged.stable. The patient is experiencing no daytime asthma symptoms. She is experiencing no nighttime asthma symptoms. Discussed monitoring symptoms and use of quick-relief medications and contacting us early in the course of exacerbations. Lupus Assessment & Plan (04/05/2024 10:59 AM CDT): Labs ordered. Highly encouraged to follow-up with rheumatology as we discussed last year. She does have health insurance now. Advised her to contact her health insurance provider to see who they recommend for rheumatology. She is agreeable with plan and states understanding. Assessment & Plan (12/06/2020 9:49 AM CDT): Will update her labs Condition stable at this time based on symptoms Resolved Problems Problem Noted Date Diagnosed Date Resolved Date BMI 31.0-31.9,adult 10/19/2017 07/03/20 21 Assessment & Plan (07/28/2019 9:47 AM CATERING ASSOCIATE): - BMI too high, counseled on dietary approaches to lowering BMI, exercise approaches to lowering BMI, risk to health due to elevated BMI, healthy BMI level to trend toward. Assessment & Plan (05/11/2019 11:23 AM CDT): - BMI too high, counseled on dietary approaches to lowering BMI, exercise approaches to lowering BMI, risk to health due to elevated BMI, healthy BMI level to trend toward. Assessment & Plan (03/23/2019 2:33 PM CDT): - BMI too high, counseled on dietary approaches to lowering BMI, exercise approaches to lowering BMI, risk to health due to elevated BMI, healthy BMI level to trend toward. Assessment & Plan (10/19/2018 12:55 PM CATERING ASSOCIATE): - BMI too high, counseled on dietary approaches to lowering BMI, exercise approaches to lowering BMI, risk to health due to elevated BMI, healthy BMI level to trend toward. Assessment & Plan (03/30/2018 7:05 AM CDT): - BMI too high, counseled on dietary approaches to lowering BMI, exercise approaches to lowering BMI, risk to health due to elevated BMI, healthy BMI level to trend toward. Assessment & Plan (10/19/2017 8:43 PM CATERING ASSOCIATE): Obesity is worsening. Increased by 5 lbs Discussed the patient's BMI. The BMI is above average; BMI management plan is completed. General weight loss/lifestyle modification strategies discussed (elicit support from others; identify saboteurs; non-food rewards, etc). Immunizations Immunization Administration Dates Next Due Hep A, Adult 10/28/2016 Influenza, Quadrivalent, Spl it, Intramuscular 07/21/2016 Influenza, Quadrivalent, Spl it, Preservative Free, Intramuscular 07/25/2021,06/13/2020,06/20/2019,06/23 Influenza, Split 06/26/2010 Influenza, Trivalent, Cell Culture-based MDCK, Preservative Free, Antibiotic Free, Intramuscular 06/09/2024 Influenza, Trivalent, IM (MDV) 07/11/2014,2008 Influenza, Trivalent, Preser vative Free, Intramuscular 10/02/2013 Influenza, Unspecified 04/05/2024(Deferr ed: Patient Refused),05/23/2023(Deferred: Patient Refused),01/14/2023(Deferred: Patient Refused),09/22/2022(Deferred: Patient Refused),09/22/2021(Deferred: Patient Refused),10/02/2013 Pfizer SARS-CoV-2 Monovalent Vaccination (12+ Yrs) PURPLE 09/13/2021,07/16/2021 Tdap 12/10/2011 Social History Tobacco Use Types Packs/Day Years [...] on file Legal Sex Female 7:35 PM CATERING ASSOCIATE Gender Identity Not on file Sexual Orientation Not on file 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 on file Not on file Not on file Last Filed Vital Signs Vital Sign Reading Time Taken Comments Blood Pressure 104/68 11/29/2024 11:02 AM CDT Pulse 89 11/29/2024 11:02 AM CDT Temperature 37.1 C (98.8 F) 11/29/2024 11:02 AM CDT Respiratory Rate 18 11/29/2024 11:02 AM CDT Oxygen Saturation 97% 11/29/2024 11:02 AM CDT Inhaled Oxygen Concentration - - Weight 81.2 kg (179 lb) 02/04/2025 9:14 AM CDT Height 157.5 cm (5' 2.01) 02/04/2025 9:14 AM CD T Body Mass Index 32.73 02/04/2025 9:14 AM CDT Plan of Treatment Not on file Procedures Procedure Name Priority Date/Time Associated Diagnosis Comments XR SPINE CERVICAL 2 OR 3 VIEWS Schedule Routine, Read Routine (OP Routine) 02/04/2025 2:57 PM CDT Neck pain XR SHOULDER LEFT 2 OR MORE VIEWS Schedule Routine, Read Routine (OP Routine) 02/04/2025 2:55 PM CDT Nontraumatic tear of left rotator cuff, unspecified tear extent [place] ARTHROCENTESIS ASPIR&/INJ MAJOR JT/BURSA W/O US Routine 02/04/2025 9:30 AM CDT Nontraumatic tear of left rotator cuff, unspecified tear extent HEPATITIS C ANTIBODY Routine 05/21/2024 4:42 PM CDT Positive HAYLEE (antinuclear antibody) Musculoskeletal pain Other fatigue Skin rash from Last 3 Months or Most Recently Relevant to Health Maintenance Results * XR Spine Cervical 2 or 3 Views (02/04/2025 2:57 PM CDT) Anatomical Region Laterality Modality Spine N/A Computed Radiogr aphy Narrative 02/04/2025 2:57 PM CDT My interpretation of her x-rays today: Two views of her C-spine including AP and lateral show straightening of the C-spine with loss of normal lordosis. I do not appreciate any acute bony abnormality or dislocation. us Jocelin [facility] IMG XR PROCEDURES Final Resu lt * XR Shoulder Left 2 or More Views (02/04/2025 2:55 PM CDT) Anatomical Region Laterality Modality Upper Extremities, Shoulder Left Comp uted Radiography Narrative 02/04/2025 2:55 PM CDT My interpretation of her x-rays today: Four views of her shoulder including AP, Grashey, scapular Y, and axillary show mild degenerative changes at the AC joint as well as the glenohumeral joint. I do not appreciate any acute bony abnormality. us Jocelin [facility] IMG XR PROCEDURES Final Resu lt * NH ARTHROCENTESIS ASPIR&/INJ MAJOR JT/BURSA W/O US (02/04/2025 9:30 AM CDT) Narrative Jocelin John PA - 02/04/2025 9:30 AM CDT Jocelin John PA 02/04/2025 3:11 PM Large Joint (Hip, Knee, Shoulder) Injection: L subacromial bursa Performed by: Jocelin John PA Authorized by: Jocelin John PA Large Joint Injection/Aspiration: Consent Given by: Patient Site marked: the procedure site was marked Verbal consent obtained: Yes Supporting Documentation: Indications: Pain Procedure Details: Location: Shoulder Site: L subacromial bursa Needle Size: 22 G Approach: Posterior Ultrasound guided: No Fluroscopic guidance: No Medications: 3 mL BUPivacaine 0.5 % (5 mg/mL); 40 mg triamcinolone 40 mg/mL Patient tolerance: Patient tolerated the procedure well with no immediate complications us Jocelin [facility] IN CLINIC/BEDSIDE ORDERABLES Final Result * Hepatitis C antibody Blood (05/21/2024 4:42 PM CDT) Hep C Ab Nonreactive Nonreactive Comment: Interpretive Data Nonreactive: Antibodies to HCV not detected. Does NOT exclude the possibility of recent exposure to HCV. Equivocal: Equivocal for HCV antibodies. Supplemental molecular testing will be automatically performed to determine infection status in accordance with current CDC screening recommendations. Reactive: Positive for HCV antibodies. This may represent current or past HCV infection. Supplemental molecular testing will be automatically performed to determine current infection status in accordance with current CDC screening recommendations. Interpretive data was last revised on 2019. Blood 05/21/2024 4:42 PM CDT 05/21/2024 4:42 PM CDT us Rosette Mcgee MD LAB MICROBIOLOGY - GENERAL ORDERABLES Final Result [facility] [id number] Department [place] [address] from Last 3 Months or Most Recently Relevant to Health Maintenance Insurance [facility] AETNA BET[place] [facility] [place] [facility] Care Teams Acquisition Consultant Relationship Specialty Start Date End Date Philippe Garcia MD [address] [place] [address] PCP - General Family Medicine 01/21/23
--- OUTSIDE RECORDS SUMMARY | 2025-03-08 15:39 | XMS_ITS | Clinical Summary ---
Author Organization [facility] Address [address] [place] [address] Care Team Providers Care Meter Tester Primary Name Role Phone Philippe Garcia MD Primary Care Provider [phone] Allergies Active Allergy Reactions Criticality Noted Date [...] mouth daily 90 tablet 3 04/15/20 24 04/10/ 025 Active albuterol 2.5 mg /3 mL [...] total) by mouth daily 90 tablet 4 01/21/20 25 026 Active methylPREDNISo lone (MEDROL DOSEPACK) [...] received. Assessment & Plan (10/19/2018 12:54 PM BOOK TRIMMER): - continue to work toward eating more fiber, fresh vegetables and fruits - continue to work toward eating less meat, less fried foods, less fat - increase activity as tolerated - continue medications for cholesterol reduction. Positive HAYLEE (antinuclear antibody) 10/14/2017 Assessment & Plan (10/19/2017 8:41 PM BOOK TRIMMER): Encouraged to see research dairy farm supervisor for evaluation. Restless leg syndrome 03/04/2017 Assessment & Plan (10/19/2017 8:40 PM BOOK TRIMMER): Plan to start Neurontin 300 mg at [...] changes Assessment & Plan (10/19/2018 12:55 PM BOOK TRIMMER): - condition stable - continue current medications Assessment & Plan (03/30/2018 7:05 AM CDT): - she will continue her citalopram and buspirone Assessment & Plan (10/19/2017 8:39 PM BOOK TRIMMER): Controlled with Citalopram-will continue at 40 mg daily. Assessment & Plan (03/05/2017 7:12 PM CDT): Continues on Citalopram. Using Xanax prn. Primary insomnia 03/04/2017 Assessment & Plan (10/19/2017 8:42 PM BOOK TRIMMER): Hope will improve with addition of gabapentin. [...] evaluation Assessment & Plan (10/19/2018 12:55 PM BOOK TRIMMER): - condition stable - continue current medications Assessment & Plan (10/19/2017 8:40 PM BOOK TRIMMER): Asthma is stable. Allergies have been stable. [...] 21 Assessment & Plan (07/28/2019 9:47 AM BOOK TRIMMER): - BMI too high, counseled on dietary [...] toward. Assessment & Plan (10/19/2018 12:55 PM BOOK TRIMMER): - BMI too high, counseled on dietary [...] toward. Assessment & Plan (10/19/2017 8:43 PM BOOK TRIMMER): Obesity is worsening. Increased by 5 lbs Discussed the patient's BMI. The BMI is above average; BMI management plan is completed. General weight loss/lifestyle modification strategies discussed (elicit support from others; identify saboteurs; non-food rewards, etc). Encounters Date Type Department Care Team Description 02/11/2025 Orders Only [facility] [address] [address] Philippe Garcia MD 02/11/2025 Telephone [facility] [address] [address] Philipep Garcia MD Symptom Based Call 02/04/2025 9:39 AM CDT - 02/04/2025 11:59 PM CDT Hospital Encounter [facility] [address] [place] [phone] Discharge Disposition: Discharge to home or self care 02/04/2025 9:39 AM CDT - 02/04/2025 11:59 PM CDT Hospital Encounter [facility] [address] [place] [phone] Discharge Disposition: Discharge to home or self care 02/04/2025 9:30 AM CDT Office Visit [facility] at [address] [place] [phone] Jocelin John PA Nontraumatic tear of left rotator cuff, unspecified tear extent (Primary Dx); Neck pain 01/19/2025 Telephone [facility] [address] [address] Philippe Garcia MD Medication Request 12/15/2024 Orders Only [facility] [address] [address] Philippe Garcia MD 12/14/2024 Telephone [facility] [address] [address] Philippe Garcia MD Symptom Based Call from Last 3 Months Immunizations Immunization Administration Dates Next Due Hep [...] Vaccination (12+ Yrs) PURPLE 09/13/2021,07/16/2021 Tdap 12/10/2011 Surgical History Surgery Date Site/Laterality Comments OTHER SURGICAL HISTORY 2008 Abnormal pap-HGSIL 03/06/07: colp and cold knife cone consistent with HGSIL OTHER SURGICAL HISTORY Acute Appendicitis: Appendectomy APPENDECTOMY Appendectomy OTHER SURGICAL HISTORY 09/22/2005 - 09/21/2006 had a quarter size portion removed from uterus Medical History Medical History Date Comments Gastroesophageal reflux disease GERD Osteoarthritis Osteoarthritis Hx Other Medical Abnormal pap-HG GIO 03/06/07 Hx Other Medical PKU-phenylketon uria with Hx Other Medical Acute Appendici tis Asthma Asthma Anxiety History of PKU Lupus (systemic lupus erythematosus) (HCC) Family History Medical History Relation Name Comments Diabetes type II Brother 1 Jon Diabetes -T ype II; Heart disease Brother 1 Jon Diabetes type II Brother 2 Khanh Jr. Diabetes -T ype 2; Heart disease Brother 2 Khanh Jr. Stroke Brother 2 Khanh Jr. Heart disease Brother 3 Adam Other Brother 3 Adam CVD with pacema ker; Diabetes Father Diabetes mellit us; Heart disease Father Heart disease; Heart failure Father CHF; Hyperlipidemia Father Hyperlipidemi a; Hypertension Father Hypertension; Other Father PAD; Heart attack Mother Myocardial infa rction; Cause of : Myocardial infarction Hypertension Mother Hypertension; Rheum arthritis Mother Rheumatoid a rthritis; Leukemia Mother's Brother leukemia; Other Other 1 Family history of Rheumatic Fever with preg; Other Other 2 Family history of CABG; Coronary artery disease Other 3 Fami ly history of Coronary artery disease; Other Sister 1 Mary Jo CAD with CABG; Stroke Sister 1 Mary Jo cardiac pacemaker Sister 1 Mary Jo Skin cancer Sister 2 Lona recurring No Known Problems Sister 3 Eugenia No Known Problems Sister 4 Katty Relation Name Status Comments Brother 1 Jon Brother 2 Khanh Jr. 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 Not on file Not on file Obstetrics History Last Filed Vital Signs Vital Sign Reading [...] 02/04/2025 9:14 AM CDT Plan of Treatment Health Maintenance Due Date Last Done Comments Breast Cancer Screening-Mammogram 1967 Cervical Cancer Screening 1967 Colon Cancer Screening-Colonoscopy 1967 Hepatitis B Screening 1985 Regular Well Visit/Exam 18-64 1985 Pneumococcal vaccine <65 (1 of 2 - PCV) 1986 Zoster Vaccine (1 of 2) 2017 DTaP/Tdap/Td Vaccine (2 - Td or Tdap) 12/09/2021 12/10/2011 Covid-19 Vaccine (3 - 2023-2 5 season) 2024 09/13/2021, 07/16/2021 Depression Screening 04/05/2025 04/05/2024, 01/14/2023, 04/03/2021, Additional history exists Hepatitis C Screening Completed 05/21/2024 Influenza Vaccine Completed 06/09/2024, , 06/13/2020, Additional history exists Procedures Procedure Name Priority Date/Time Associated Diagnosis Comments XR SPINE CERVICAL 2 OR 3 VIEWS Schedule Routine, Read Routine (OP Routine) 02/04/2025 2:57 PM CDT Neck pain XR SHOULDER LEFT 2 OR MORE VIEWS Schedule Routine, Read Routine (OP Routine) 02/04/2025 2:55 PM CDT Nontraumatic tear of left rotator cuff, unspecified tear extent LA ARTHROCENTESIS ASPIR&/INJ MAJOR JT/BURSA W/O US Routine [...] bony abnormality or dislocation. us Jocelin GOODSON IM XR PROCEDURES Final Resu lt * XR [...] IMG XR PROCEDURES Final Resu lt * LA ARTHROCENTESIS ASPIR&/INJ MAJOR JT/BURSA W/O US (02/04/2025 9:30 AM CDT) Narrative Jocelin John PA - 02/04/2025 9:30 AM CDT Jocelin oJhn PA 02/04/2025 3:11 PM Large Joint (Hip, [...] MICROBIOLOGY - GENERAL ORDERABLES Final Result [facility] [address] Department of Laboratories [place], [place] [id number] from Last 3 Months or Most Recently Relevant to Health Maintenance Insurance [facility] Care Teams Meter Tester Primary Relationship Specialty Start Date End Date Philippe Garcia MD [address] [place] [address] PCP - General Family Medicine 01/21/23
--- OUTSIDE RECORDS SUMMARY | 2025-03-08 15:39 | XMS_ITS | Encounter Summary ---
Author Organization [facility] Address [address] [place] [address] Phone Care Team Providers Care Supervisor Model Making Name Role Phone Svetlana Jones MACHINE STRIPER Primary Care Provider [phone] Newton Devries MACHINE STRIPER Primary Care Provider [phone] Ysabel Keen NP Primary Care Provider [phone] Philippe Garcia MD Primary Care Provider [phone] Encounter Details Date Type Department Care Team (Late st Contact Info) Description 11/21/[address] 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 us Historical Provider LAB BLOOD ORDERABLES Tamiko l Result documented in this encounter Visit Diagnoses Not on filedocumented in this encounter Additional Health Concerns Infection Onset Date Last Indicated Resolved Time COVID: Suspected 09/16/2020 09/16/2020 09/17/2020 3:01 AM WORM GROWER Respiratory Infection (TOOTIE), contact + droplet Comment:Automatically added due to negative COVID-19 result. 09/17/2020 09/17/2020 10/01/2020 3:0 6 AM WORM GROWER COVID: Suspected 11/29/2024 11/29/2024 11/29/2024 11:30 AM CDT documented as of this encounter Care Teams Supervisor Model Making Relationship Specialty [place] [address] [address] [address] PCP - General Internal Medicine 03/10/17 03/23/18 [place] [address] [address] [facility] [address] [address] PCP - General Family Medicine 03/24/18 01/13/23 Ysabel Keen NP [address] [place] [address] PCP - General Internal Medicine 01/14/23 01/20/23 Philippe Garcia MD [address] [place] [address] PCP - General Family Medicine 01/21/23 documented as of this encounter
--- NOTE | 2025-03-08 16:18 | ECG_ITS ---
Test Date: 2025-03-08 16:31:04 Measurements Intervals [place] Rate: 92 P: 53 OR: 196 QRS: 53 QRSD: 81 T: 60 QT: 352 QTc: 436 Interpretive Statements SINUS RHYTHM BASELINE ARTIFACT- I, II, III, AVR, AVL, AVF NORMAL ECG Compared to ECG 03/08/2025 13:32:41 HEART RATE HAS DECREASED Electronically Signed On 03-08-2025 16:54:49 CDT by Janak Degroot D.O.
[2025-03-08 16:44] LABS: Add Urine Microscopic? YES; Appearance Urine Clear (Clear); Bacteria Urine None Seen /hpf; Bilirubin Urine Negative (Negative); Blood Urine Negative (Negative); Color Urine Yellow (Yellow); Glucose Urine UA Negative (Negative); Ketones Urine Negative (Negative); Leukocyte Esterase Ur Trace LEU/UL (Negative); Nitrate Urine Negative (Negative); Non Pathogenic Casts 0-2; Protein Urine Negative (Negative); RBC Urine 0-2 /hpf (0-2); Specific Grav Ur 1.009 (1.001-1.035); Squamous Epithelial Cell Urine None Seen /hpf (Few); Urobilinogen Urine 0.2 mg/dL (<2.0); WBC Urine 0-5 /hpf (0-3)
[2025-03-08 17:02] LABS: Amphetamine Screen Urine Negative (Negative); Barbiturate Screen Urine Negative (Negative); Benzodiazepines Screen Urine Negative (Negative); Cannabinoid Screen Urine Positive (Negative); Cocaine Screen Urine Negative (Negative); Methadone Screen Urine Negative (Negative); Opiate Screen Urine Negative (Negative); Phencyclidine Screen Urine Negative (Negative)
[2025-03-08 17:07] LABS: Troponin I 0.041 ng/mL (0.000-0.034)
[2025-03-08] MEDS: LORazepam INJ (*CRX) 2 MG/ML VIAL 0.5 MG IV PUSH (17:15)
--- NOTE | 2025-03-08 17:56 | PM.IMHP ---
H&P: HPI History of Present Illness Date/Time: 03/08/25 17:56 Chief Complaint: Chest Pain, Dizziness Narrative: 59 y/o F with PMH of anxiety/depression, lupus, and HLD presents here with chest pain and dizziness. The patient presents here via EMS from a local [facility]. She reports she was walking through the [place] when she began to experience chest pain that was accompanied by dizziness, lightheadedness, diaphoresis, nausea, shortness of breath, and near syncope sensation. She left [facility] and got to her car. By the time she arrived her car, she reports the shortness of breath and chest pain had worsened. This prompted her to call EMS, upon their arrival they noted the patient to be in SVT with heart rate in the 240s. She denied accompanying palpitations. They attempted to have the patient do Valsalva maneuvers but she was having difficulty due to her symptoms. She briefly beared down while EMS was drawing up adenosine and was felt a flip and then her symptoms significantly improved. She was able to convert to sinus tachycardia. After conversion, she reports some mild continuation of chest pain and continued to feel like she couldn't catch her breath. Symptoms have since completely resolved. She denies any previous history of cardiac issues, dysrhythmias, or SVT. She has had intermittent palpitations in the past but they have been brief. She denies any precipitating illness, fever, URI symptoms, nausea/vomiting/diarrhea. Initial VS at presentation: 90? F, HR 118, RR 16, 155/94, and 99% on RA. ED workup showed: No leukocytosis, no anemia, normal coags, negative D-dimer, no significant electrolyte derangements, creatinine 0.81 and GFR >60, magnesium within normal limits at 1.9, initial troponin negative x2 with 3rd troponin at 0.041, TSH 2.87, and UA showed trace leuk [place]strace otherwise unremarkable. UDS positive for marijuana otherwise unremarkable. Initial EKG showed sinus tachycardia with 1st degree AV block, rate 108, baseline artifact. Repeat EKG showed sinus rhythm, rate 92. CXR showed no acute cardiopulmonary pathology. Review of Systems Review of Systems: All systems reviewed & are unremarkable except as noted in HPI and below PMFSH Past Medical History Medical History (Updated 03/08/25 @ 22:55 by Tianna Solorzano APRN) Depression HLD (hyperlipidemia) Lupus Anxiety Social History Social History Smoking status: Never smoker Alcohol intake: never Last use: 03/07/25 Do You Feel Safe in your Home?: Yes Lack of Transportation: No Lack of Food: Never True Current Housing: I Have Housing Concerned About Future Housing: No Difficulty Paying Gas/Electric Bills: No Difficulty Paying for Meds: No Currently Unemployed: No Education: Associate Degree Difficulty w/ Childcare or Family Care: No Gender identity (if verbalized by the patient): Female Spiritual care concerns: No Meds Home Medications and Allergies Home Medications ?Medication ?Instructions ?Recorded ?Confirmed ?Type albuterol sulfate 90 mcg/actuation 1 inh inhalation DIRECTED 08/20/22 03/08/25 History aerosol inhaler benzonatate 200 mg capsule 200 mg PO TID PRN cough #20 caps 08/20/22 03/08/25 Rx hydroxyzine pamoate 25 mg capsule 25 mg PO HS 08/20/22 03/08/25 History rosuvastatin 10 mg tablet 10 mg PO HS 08/20/22 03/08/25 History citalopram 10 mg tablet 5 mg PO HS 03/08/25 03/08/25 History cyclobenzaprine 10 mg tablet 10 mg PO Q8H PRN muscle spasm 03/08/25 03/08/25 History ergocalciferol (vitamin D2) 1,250 1,250 mcg PO WEEKLY 03/08/25 03/08/25 History mcg (50,000 unit) capsule tramadol 50 mg tablet 50 mg PO Q6H PRN pain 03/08/25 03/08/25 History Allergies Allergy/AdvReac Type Severity Reaction Status Date / Time No Known Allergies Allergy Verified 08/20/22 12:45 Vital Signs Vital Signs - 24 hr 03/08/25 13:27 03/08/25 13:43 03/08/25 13:46 Temperature 98.0 F Pulse Rate 118 H 115 H 110 H Respiratory Rate 16 20 12 Blood Pressure 155/94 H 141/91 H 143/88 H Pulse Oximetry 99 98 97 Oxygen Delivery Room Air 03/08/25 14:38 03/08/25 14:48 03/08/25 15:05 Temperature Pulse Rate 104 H 94 94 Respiratory Rate 16 16 15 Blood Pressure Pulse Oximetry 98 100 99 Oxygen Delivery 03/08/25 15:21 03/08/25 16:01 03/08/25 16:31 Temperature Pulse Rate 95 85 95 Respiratory Rate 14 30 H 28 H Blood Pressure 109/69 119/63 Pulse Oximetry 99 98 98 Oxygen Delivery 03/08/25 17:30 Temperature Pulse Rate 93 Respiratory Rate 15 Blood Pressure Pulse Oximetry 98 Oxygen Delivery Exam Const: General: comfortable and no acute distress Other: , female, nontoxic appearance HENMT: Face/Nose/Sinus: Normal nares present Mouth: Yes moist mucous membranes Eyes: General: appearance normal, both eyes and all related structures Sclera: sclerae normal Pupils: Equal, round and reactive pupils present EOM: EOMs intact bilaterally Resp: Effort & Inspection: normal respiratory effort Auscultation: clear to auscultation bilaterally Cardio: Rate: regular rate Rhythm: regular rhythm Other: S1-S2 present without murmur, rub, ectopy GI: Other: Abdomen soft, nondistended, nontender. Normoactive bowel sounds in all quadrants. Skin: General skin exam: normal color and no rashes or lesions noted Wounds: no wounds Neuro: Speech: normal speech Motor exam (neuro): 5/5 motor strength present throughout Sensory Exam: normal sensation Other: A&O x4 Extrem: General: normal to inspection Psych: Mental Status: mental status grossly normal Affect: normal affect Other: Good insight judgment, pleasant H&P: Results Labs Labs: Short CBC 03/08/25 Range/Units 13:47 WBC 5.5 (4.5-10.0) K/mm3 Hgb 14.0 (12.0-15.0) g/dL Hct 42.8 (37.0-47.0) % Plt Count 218 (150-375) k/mm3 BMP 03/08/25 13:47 Sodium 139 Potassium 3.7 Chloride 109 H Carbon Dioxide 21 L BUN 13 Creatinine 0.81 Glucose 98 Calcium 9.1 Cardiac Enzymes 03/08/25 03/08/25 Range/Units 13:47 16:34 Troponin I < 0.012 0.041 H* D (0.000-0.034) ng/mL Liver Function 03/08/25 Range/Units 13:47 Total Bilirubin 0.4 (0.2-1.3) mg/dL AST 26 (14-36) U/L ALT 18 (6-35) U/L Alkaline Phosphatase 81 (38-126) U/L Albumin 4.1 (3.5-5.1) g/dL Urine 03/08/25 Range/Units 16:34 Urine Color Yellow (Yellow) Urine Appearance Clear (Clear) Urine pH 7.0 (5.0-9.0) Ur Specific [place] 1.009 (1.001-1.035) Urine Protein Negative (Negative) mg/dL Urine Glucose (UA) Negative (Negative) mg/dL Assessment and Plan Assessment and plan (1) Supraventricular tachycardia: Code(s): I47.10 - Supraventricular tachycardia, unspecified Status: Acute Assessment and Plan: - per EMS report patient in SVT in the 240s with self conversion to sinus tachycardia with bearing down, no adenosine given. EKG upon arrival showed sinus tachycardia with first-degree AV block with a rate of 108. Repeat EKG showed sinus rhythm, rate 92. No telemetry strip available from EMS. - magnesium and TSH within normal limits on 03/08 - consider Holter monitor at discharge - cardiology consult blood - telemetry monitoring (2) Chest pain: Qualifiers: Chest pain type: unspecified Qualified Code(s): R07.9 - Chest pain, unspecified Code(s): R07.9 - Chest pain, unspecified Status: Acute Assessment and Plan: - troponin: <0.012 x1 -> 0.041 -> 0.050 - patient had transient chest pain with suspected episode of SVT, however did not immediately resolve with methodist of sinus rhythm. Now totally resolved, denies recurrence. - cardiology consulted - ASA 324 given -> ASA 81 - nitro SL p.r.n. - telemetry monitoring and observation - check lipid panel and A1c Plan Diet: Heart healthy GI Prophylaxis: Not currently indicated DVT Prophylaxis: Lovenox SQ IV fluids: 1L bolus Lines/Tubes: Peripheral IV Code Status: Full code Quality VTE Prophylaxis VTE prophylaxis: pharmacologic ordered Hospitalist MIPS Advance Care Plan I have confirmed that the patient's Advanced Care Plan is present, code status is documented, or surrogate decision maker is listed in patient medical record.: Yes Medication Reconciliation I have utilized all available resources to obtain, update and review the patients current medications (includes all prescriptions, OTC, herbals, cannabis, and nutritional supplements).: Yes
--- NOTE | 2025-03-08 18:53 | ADMGEN ---
This patient, Shirley Landry, was admitted to IMU Room 210-01. Patient/family oriented to hospital policies and general routines including ID bracelet, bed and alarms, visiting hours, pain management, procedures, bathroom and other care routines, personal items, smoking policy, room service/diet, and visiting hours. Information on how to activate the Rapid Response Team has been discussed. Patient/Family are encouraged to report perceived risks to care and to ask questions if they do not understand what they are told or what they should do.
--- NOTE | 2025-03-08 19:30 | ECG_ITS ---
Test Date: 2025-03-08 19:13:13 Measurements Intervals [place] Rate: 79 P: 32 UT: 193 QRS: 52 QRSD: 76 T: 65 QT: 382 QTc: 440 Interpretive Statements SINUS RHYTHM BASELINE ARTIFACT- I, II, III, AVR, AVL ,AVF, V5 NORMAL ECG Compared to ECG 03/08/2025 16:31:04 No significant changes Electronically Signed On 03-08-2025 20:56:17 CDT by Janak Degroot D.O.
[2025-03-09] VITALS (12 sets, daily range): BP systolic 122–149; BP diastolic 66–71; PULSE 65–99; RESP 12–18; TEMP 36.4–36.8; O2SAT 97–100
--- NOTE | 2025-03-09 | ECHO_ITS ---
Patient Info Name: Shirley Landry Age: 59 years : 1965 Gender: Female Ht: 62 in Wt: 181 lbs BSA: 1.93 m2 HR: 70 bpm BP: 149 / 66 mmHg Technical Quality: Good Exam Date: 03/09/2025 2:51 PM Patient Status: O Admit Date: 03/08/2025 Exam Type: CA echo doppler color flow Complete two-dimensional, color flow and Doppler transthoracic echocardiogram is performed. Staff Referring Physician: Marco A Saunders MD Gas Pumper: Vani Dos Santos Attending Provider: Magno Betts Summary 1. Left ventricular chamber dimension is normal. 2. Left ventricular systolic function is normal, estimated at 60-65. 3. The left ventricular diastolic function is grade I diastolic dysfunction. 4. Right ventricular systolic function is normal. 5. There is mild mitral valve regurgitation. 6. There is mild tricuspid valve regurgitation. Left Ventricle Left ventricular chamber dimension is normal. Left ventricular systolic function is normal, estimated at 60-65. There is no increased left ventricular wall thickness. The left ventricular diastolic function is grade I diastolic dysfunction. Right Ventricle Right ventricular chamber dimension is normal. Right ventricular systolic function is normal. Left Atria Left atrial chamber dimension is normal. Right Atria Right atrial chamber dimension is normal. Atrial Septum Intact interatrial septum visualized by color flow imaging. Aortic Valve The aortic valve is trileaflet. There is no aortic valve stenosis. There is no aortic valve regurgitation. There is mild aortic valve calcification. Pulmonic Valve The pulmonic valve is not well visualized. There is trace pulmonic regurgitation. Mitral Valve There is mild mitral valve regurgitation. Tricuspid Valve There is mild tricuspid valve regurgitation. Pericardium/Pleural The pericardium appears epicardial fat pad. There is no pericardial effusion. Inferior Vena Cava Normal inferior vena cava with >50% collapse upon inspiration consistent with normal right atrial pressure, 3 mmHg. Aorta The aortic root size at the sinus of Valsalva is normal. Left Ventricular Outflow Tract Name Value Normal LVOT 2D LVOT Diameter 2.0 cm LVOT Doppler LVOT Peak Velocity 94 cm/s LVOT Peak Gradient 4 mmHg LVOT Mean Gradient 2 mmHg LVOT VTI 21 cm LVOT Stroke Volume 64 ml LVOT CO 4.5 l/min LVOT CI 2.3 l/min/m2 Pulmonic Valve Name Value Normal RVOT Doppler RVOT Peak Velocity 54 cm/s RVOT Peak Gradient 1 mmHg PV Doppler PV Peak Velocity 73 cm/s PV Peak Gradient 2 mmHg Mitral Valve Name Value Normal MV Diastolic Function MV E Peak Velocity 76 cm/s MV A Peak Velocity 80 cm/s MV E/A 0.9 MV Decel Time (PW) 206 ms MV Annular TDI MV E/e' (Septal) 8.8 MV E/e' (Lateral) 6.4 MV E/e' (Average) 7.6 Tricuspid Valve Name Value Normal TV Regurgitation Doppler TR Peak Velocity 221 cm/s TR Peak Gradient 19 mmHg Estimated PAP/RSVP RA Pressure 3 mmHg <=5 PA Systolic Pressure 22 mmHg <36 RV Systolic Pressure 22 mmHg <36 Aortic Valve Name Value Normal AV Doppler AV Peak Velocity 125 cm/s AV Peak Gradient 6 mmHg AV Area (Cont Eq Tj) 2.3 cm2 AV DI (Tj) 0.75 AV Regurgitation 2D LVOT Area 3.0 cm2 Ventricles Name Value Normal LV Dimensions 2D/MM IVS Diastolic Thickness (2D) 0.9 cm 0.6-1.0 LVID Diastole (2D) 3.7 cm 3.8-5.2 LVIW Diastolic Thickness (2D) 0.9 cm 0.6-0.9 LVID Systole (2D) 2.3 cm 2.2-3.5 LVOT Diameter 2.0 cm LV Mass (2D Cubed) 101.39 g 67.00-162.00 LV Mass Index (2D Cubed) 53 g/m2 43-95 Relative Wall Thickness (2D) 0.51 <=0.42 LV Fractional Shortening/Ejection Fraction 2D/MM LV Fractional Shortening (2D) 37 % 27-45 LV EF (2D Teichholz) 68 % LV Diastolic Volume (4C MOD) 59 ml LV EF (4C MOD) 67 % LV Diastolic Volume (2C MOD) 52 ml LV EF (2C MOD) 56 % LV Diastolic Volume (BP MOD) 56 ml 46-106 LV Diastolic Volume Index (BP MOD) 29 ml/m2 29-61 LV Systolic Volume (BP MOD) 22 ml 14-42 LV Systolic Volume Index (BP MOD) 12 ml/m2 8-24 LV EF (BP MOD) 60 % 54-74 LV Diastolic Length (4C) 7.6 cm LV Systolic Length (4C) 5.8 cm LV Stroke Volume (4C MOD) 40 ml Atria Name Value Normal LA Dimensions LA Volume (4C A-L) 23 ml LA Volume (BP A-L) 25 ml RA Dimensions RA Systolic [place] Length (4C) 5.0 cm 2.2-2.8 RA Area (4C) 12.9 cm2 <=18.0 Report Signatures
[2025-03-09 04:16] LABS: Basophils Percent Auto 0.4 % (0.2-1.2); Eosinophils Absolute Auto 0.2 K/mm3 (0-0.3); Eosinophils Percent Auto 4.8 % (0-4.4); Hematocrit 39.9 % (37.0-47.0); Hemoglobin 12.8 g/dL (12.0-15.0); Immature Granulocyte Absolute 0.01 K/mm3 (0.00-0.031); Immature Granulocyte Percent A 0.2 % (0-0.5); Lymphocytes Absolute Auto 1.64 K/mm3 (0.9-3.2); Lymphocytes Percent Auto 32.8 % (18.3-44.2); Mean Corpuscular HGB Conc 32.1 g/dl (32-36); Mean Corpuscular Volume 84.2 fl (80-100); Mean Platelet Volume 11.1 fl (7.4-10.4); Monocytes Absolute Auto 0.4 K/mm3 (0.1-0.6); Monocytes Percent Auto 7.4 % (2.6-8.5); Neutrophils Absolute Auto 2.7 K/mm3 (1.3-6.7); Neutrophils Percent Auto 54.4 % (45.5-73.1); Platelet Count Result 211 k/mm3 (150-375); Red Blood Count 4.74 M/mm3 (4.2-5.4); Red Cell Distribution Width 13.6 % (11.5-14.5)
[2025-03-09 04:31] LABS: Hemoglobin A1C 5.3 % (<5.7)
[2025-03-09 04:37] LABS: Anion Gap 6 mmol/L (4-12); Blood Urea Nitrogen 11 mg/dL (7-17); Calcium 9.2 mg/dL (8.4-10.2); Carbon Dioxide 25 mmol/L (22-30); Chloride 108 mmol/L (98-107); Cholesterol 178 mg/dL (0-200); Estimated CRCL calculation 75 ml/min; Estimated Glomerular Filt Rate > 60; Glucose 92 mg/dL (65-110); HDL Direct 40 mg/dL; Magnesium 2.2 mg/dL (1.6-2.3); Sodium 139 mmol/L (137-145); Triglycerides 96 mg/dL (<150)
[2025-03-09 04:46] LABS: LDL Cholesterol Direct 103 mg/dL
--- NOTE | 2025-03-09 09:06 | PM.CNCAR ---
Assessment and Plan Assessment and plan (1) Supraventricular tachycardia: Code(s): I47.10 - Supraventricular tachycardia, unspecified Status: Acute Plan 1. SVT 2. Elevated troponins 3. Hyperlipidemia 4. Anxiety / Depression 5. Lupus 6. Marijuana use PLAN: -SVT resolved after EMS had patient blow into the syringe. Discussed utilizing Vagal maneuvers if she has a recurrent episode. -Will start Toprol 100mg once daily. -Obtain transthoracic echocardiogram. -Elevated troponins likely due to demand ischemia from elevated heart rate, does not appear to be an acute coronary syndrome. -Continue home statin. -Recommend abstinence from marijuana for heart health. -30 day event monitor at time of discharge (order already placed). -If echocardiogram without significant abnormality, okay for discharge from a cardiac standpoint. Will arrange outpatient follow up in our office. Recommendations and plan discussed with Hospitalist. History of Present Illness History of Present Illness Consult date/time: 03/09/25 09:06 Requesting physician: Azucean Hall PA-C Consult reason: Other (SVT) Reason For Visit: elevated trop, near syncope, possible SVT Narrative: Shirley is a 59 year old female with anxiety/depression, Lupus, hyperlipidemia. Shirley reports that she had walked out of [employer] yesterday, and started feeling hot, dizziness, short of breath. She got into her car and started feeling diffuse chest pressure. 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 They had her blow into a syringe and after that maneuver, she converted out of SVT. Her symptoms shortly resolved after that. No prior cardiac history or history of SVT. States she does not do well in the heat in general. She is feeling well this morning without any symptoms. Workup here shows: Initial troponin negative. Repeat elevated at 0.041, 0.050. TSH level normal. UDS positive for cannabinoids. Serial EKGs here with sinus rhythm without any ischemic changes. Review of Systems Review of Systems: All systems reviewed & are unremarkable except as noted in HPI and below (HPI) [facility] Past Medical History Medical History Depression HLD (hyperlipidemia) Lupus Anxiety Social History Social History Smoking status: Never smoker Alcohol intake: never Last use: 03/07/25 Do You Feel Safe in your Home?: Yes Lack of Transportation: No Lack of Food: Never True Current Housing: I Have Housing Concerned About Future Housing: No Difficulty Paying Gas/Electric Bills: No Difficulty Paying for Meds: No Currently Unemployed: No Education: Associate Degree Difficulty w/ Childcare or Family Care: No Gender identity (if verbalized by the patient): Female Spiritual care concerns: No Meds Home Medications and Allergies Home Medications ?Medication ?Instructions ?Recorded ?Confirmed ?Type albuterol sulfate 90 mcg/actuation 1 inh inhalation Q4-6H PRN 08/20/22 03/08/25 History aerosol inhaler shortness of breath or wheezing benzonatate 200 mg capsule 200 mg PO TID PRN cough #20 caps 08/20/22 03/08/25 Rx hydroxyzine pamoate 25 mg capsule 25 mg PO HS 08/20/22 03/08/25 History rosuvastatin 10 mg tablet 10 mg PO HS 08/20/22 03/08/25 History citalopram 10 mg tablet 5 mg PO HS 03/08/25 03/08/25 History cyclobenzaprine 10 mg tablet 10 mg PO Q8H PRN muscle spasm 03/08/25 03/08/25 History ergocalciferol (vitamin D2) 1,250 1,250 mcg PO WEEKLY 03/08/25 03/08/25 History mcg (50,000 unit) capsule tramadol 50 mg tablet 50 mg PO Q6H PRN pain 03/08/25 03/08/25 History Allergies Allergy/AdvReac Type Severity Reaction Status Date / Time No Known Allergies Allergy Verified 08/20/22 12:45 Vital Signs Vital Signs - 24 hr 03/08/25 13:27 03/08/25 13:43 03/08/25 13:46 Temperature 36.7 C Pulse Rate 118 H 115 H 110 H Respiratory Rate 16 20 12 Blood Pressure 155/94 H 141/91 H 143/88 H Pulse Oximetry 99 98 97 Oxygen Delivery Room Air 03/08/25 14:38 03/08/25 14:48 03/08/25 15:05 Temperature Pulse Rate 104 H 94 94 Respiratory Rate 16 16 15 Blood Pressure Pulse Oximetry 98 100 99 Oxygen Delivery 03/08/25 15:21 03/08/25 16:01 03/08/25 16:31 Temperature Pulse Rate 95 85 95 Respiratory Rate 14 30 H 28 H Blood Pressure 109/69 119/63 Pulse Oximetry 99 98 98 Oxygen Delivery 03/08/25 17:30 03/08/25 18:00 03/08/25 18:30 Temperature 36.6 C Pulse Rate 93 81 86 Respiratory Rate 15 16 18 Blood Pressure 103/87 Pulse Oximetry 98 98 100 Oxygen Delivery 03/08/25 18:55 03/08/25 20:00 03/08/25 20:00 Temperature 36.9 C 36.5 C Pulse Rate 86 78 82 Respiratory Rate 12 17 Blood Pressure 167/78 H 167/80 H Pulse Oximetry 99 98 Oxygen Delivery 03/08/25 22:00 03/09/25 00:00 03/09/25 00:00 Temperature 36.4 C Pulse Rate 77 80 65 Respiratory Rate 17 Blood Pressure 143/70 H Pulse Oximetry 100 Oxygen Delivery 03/09/25 02:00 03/09/25 04:00 03/09/25 04:00 Temperature 36.5 C Pulse Rate 68 76 65 Respiratory Rate 18 Blood Pressure 122/66 Pulse Oximetry 99 Oxygen Delivery 03/09/25 06:00 03/09/25 07:53 Temperature 36.6 C Pulse Rate 69 99 Respiratory Rate 12 Blood Pressure 149/66 H Pulse Oximetry 97 Oxygen Delivery Exam Const: General: comfortable and no acute distress HENMT: Mouth: Yes moist mucous membranes Eyes: General: appearance normal, both eyes and all related structures Sclera: sclerae normal Resp: Effort & Inspection: normal respiratory effort Auscultation: clear to auscultation bilaterally Cardio: Rate: regular rate Rhythm: regular rhythm Heart sounds: no murmurs Skin: General skin exam: normal color Neuro: Speech: normal speech Psych: Mental Status: mental status grossly normal Affect: normal affect Results Labs and Meds 03/09/25 03:30 03/09/25 03:30 Lab results: Cardiac Enzymes 03/08/25 03/08/25 03/08/25 Range/Units 13:47 16:34 19:58 AST 26 (14-36) U/L Troponin I < 0.012 0.041 H* D 0.050 H* D (0.000-0.034) ng/mL Coagulation 03/08/25 Range/Units 13:47 PT 13.6 (11.1-14.7) Seconds APTT 25.8 (22.3-36.8) Seconds Lipids 03/09/25 Range/Units 03:30 Triglycerides 96 (<150) mg/dL Cholesterol 178 (0-200) mg/dL CBC 03/08/25 03/09/25 Range/Units 13:47 03:30 WBC 5.5 5.0 (4.5-10.0) K/mm3 RBC 5.17 4.74 (4.2-5.4) M/mm3 Hgb 14.0 12.8 (12.0-15.0) g/dL Hct 42.8 39.9 (37.0-47.0) % Plt Count 218 211 (150-375) k/mm3 Lymph # (Auto) 1.40 1.64 (0.9-3.2) K/mm3 [place] # (Auto) 0.3 0.4 (0.1-0.6) K/mm3 Eos # (Auto) 0.2 0.2 (0-0.3) K/mm3 Baso # (Auto) 0.0 0.0 (0.0-0.1) K/mm3 Comprehensive Metabolic Panel 03/08/25 03/09/25 Range/Units 13:47 03:30 Sodium 139 139 (137-145) mmol/L Potassium 3.7 4.0 (3.4-5.0) mmol/L Chloride 109 H 108 H (98-107) mmol/L Carbon Dioxide 21 L 25 (22-30) mmol/L BUN 13 11 (7-17) mg/dL Creatinine 0.81 0.71 (0.7-1.0) mg/dL Glucose 98 92 (65-110) mg/dL Calcium 9.1 9.2 (8.4-10.2) mg/dL AST 26 (14-36) U/L ALT 18 (6-35) U/L Alkaline Phosphatase 81 (38-126) U/L Total Protein 7.4 (6.3-8.2) g/dL Albumin 4.1 (3.5-5.1) g/dL Intake and Output 03/08/25 03/09/25 03/09/25 23:59 07:59 15:59 Intake Total 118 Balance 118 Intake: Oral 118 Other: # Unmeasured Voids 1 Patient Weight 03/09/25 23:59 Weight 82.4 kg
[2025-03-09] MEDS: METOPROLOL SUCCINATE EXT REL 100 MG TABCR PO (09:36)
[2025-03-09] MEDS: hydrOXYzine pamoate 25 MG CAPSULE PO (09:36)
[2025-03-09] MEDS: ENOXAPARIN 40 MG/0.4 ML SYRINGE SUB-Q (09:37)
[2025-03-09] MEDS: ASPIRIN 81 MG ENTERIC TABLET PO (09:37)
--- NOTE | 2025-03-09 16:03 | PM.DS ---
DS: Admitting Diagnosis Discharge Date 03/09/25 Admitting Diagnosis Chest Pain, Dizziness DS: Discharge Diagnosis Discharge Diagnosis (1) Supraventricular tachycardia: Code(s): I47.10 - Supraventricular tachycardia, unspecified Status: Acute DS: Summary Hospital Course Hospital Course: 59 y/o F with PMH of anxiety/depression, lupus, and HLD presents here with chest pain and dizziness. Episode was aborted with Valsalva maneuver in the EMS Enroute Initial VS at presentation: 90? F, HR 118, RR 16, 155/94, and 99% on RA. ED workup showed: No leukocytosis, no anemia, normal coags, negative D-dimer, no significant electrolyte derangements, creatinine 0.81 and GFR >60, magnesium within normal limits at 1.9, initial troponin negative x2 with 3rd troponin at 0.041, TSH 2.87, and UA showed trace leuk [place]ace otherwise unremarkable. UDS positive for marijuana otherwise unremarkable. Initial EKG showed sinus tachycardia with 1st degree AV block, rate 108, baseline artifact. Repeat EKG showed sinus rhythm, rate 92. CXR showed no acute cardiopulmonary pathology. Cardiology was consulted, evaluated and noted SVT, started patient Metoprolol 100mg po and ECHO was obtained whcih showed norla LV function. I discussed with cardiology Dr Montoya and she stated that patient can be discharged on Metoprolol and patient will follow up in [facility] office with cardiology tomorrow for 30 day event monitor. Patient was discharged as noted abvoe. She was asymptomatic on eval today. 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 Time Spent with Patient Time attestation: Total time spent providing and/or coordinating discharge services: DS: Data Data Completed and Pending Labs on day of discharge: Labs from last 24 hours 03/09/25 03/08/25 03/08/25 03:30 19:58 16:34 WBC 5.0 RBC 4.74 Hgb 12.8 Hct 39.9 MCV 84.2 MCH 27.0 MCHC 32.1 RDW 13.6 Plt Count 211 MPV 11.1 H Immature Gran % (Auto) 0.2 Neut % (Auto) 54.4 Lymph % (Auto) 32.8 [place] % (Auto) 7.4 Eos % (Auto) 4.8 H Baso % (Auto) 0.4 Lymph # (Auto) 1.64 [place] # (Auto) 0.4 Eos # (Auto) 0.2 Baso # (Auto) 0.0 Abs Immat Gran (auto) 0.01 Absolute Neuts (auto) 2.7 Absolute Nucleated RBC 0.000 Nucleated RBC % 0.0 Sodium 139 Potassium 4.0 Chloride 108 H Carbon Dioxide 25 Anion Gap 6 BUN 11 Creatinine 0.71 Estim Creat Clear Calc 75 Estimated GFR > 60 Glucose 92 Hemoglobin A1c 5.3 Calcium 9.2 Magnesium 2.2 Troponin I 0.050 H* D 0.041 H* D Triglycerides 96 Cholesterol 178 LDL Cholesterol Direct 103 HDL Direct 40 Urine Color Yellow Urine Appearance Clear Urine pH 7.0 Ur Specific [place] 1.009 Urine Protein Negative Urine Glucose (UA) Negative Urine Ketones Negative Ur Blood (Man) Negative Urine Nitrate Negative Urine Bilirubin Negative Urine Urobilinogen 0.2 Leukocyte Esterase Rfl Trace H Urine RBC 0-2 Urine WBC 0-5 Ur Squamous Epith Cells None seen Urine Bacteria None seen Urine Casts 0-2 Urine Opiates Screen Negative Urine Methadone Screen Negative Ur Barbiturates Screen Negative Ur Phencyclidine Scrn Negative Ur Amphetamine Screen Negative U Benzodiazepines Scrn Negative Urine Cocaine Screen Negative U Cannabinoids Screen Positive A Discharge Plan Discharge Attending physician on discharge: Yg Bacon Consulting providers: Gino Lopez Discharging Clinician: Yg Bacon Anticipated Discharge Date/Time: 03/09/25 16:00 Patient Disposition: Home Activity: as tolerated Diet: as tolerated and heart healthy Patient Instructions: Antibiotic Form, Enoxaparin (By injection) Patient Language: Nepali Stand Alone Forms: General Discharge Information Follow-up/Referrals: Gino Lopez MD [Physician] - (F/u with cardiology as instructed ) Harms,Philippe Eddy M.D. [Primary Care Provider] - (F/u with PCP in 3-5 days ) Discharge Medications: New metoprolol succinate [Toprol XL] 100 mg Tablet Extended Release 24 Hr 100 mg PO QAM 30 Days Qty: 30 1RF Continued albuterol sulfate 90 mcg/actuation HFA aerosol inhaler 1 inh INHALATION Q4-6H PRN (Reason: shortness of breath or wheezing) hydroxyzine pamoate 25 mg capsule 25 mg PO HS rosuvastatin 10 mg tablet 10 mg PO HS benzonatate 200 mg capsule 200 mg PO TID PRN (Reason: cough) Qty: 20 0RF citalopram 10 mg tablet 5 mg PO HS tramadol 50 mg tablet 50 mg PO Q6H PRN (Reason: pain) ergocalciferol (vitamin D2) 1,250 mcg (50,000 unit) capsule 1,250 mcg PO WEEKLY cyclobenzaprine 10 mg tablet 10 mg PO Q8H PRN (Reason: muscle spasm) Other Ambulatory Orders: CA cardiac event monitor (Routine) Timeframe: 1 Month Location: Determined by Patient Ordered By: Ki Montoya Date of admission: 03/08/25 17:44 Primary Care Provider: Jose,Philippe Eddy Admitting Provider: Magno Betts Attending physician on admission: Magno Betts Condition: Stable
== END 2025-03-09 17:15 | disposition home or self-care (01) ==
LOC: ANHED 17:43 → ANHIMU 23:03
PROVIDERS: Emergency Medicine; Student in an Organized Health Care Education/Training Program; Admitting Provider General Practice; Emergency Provider Physician Assistant; PCP Family Medicine; Visit Provider Internal Medicine
DX: I47.10 Supraventricular tachycardia, unspecified (principal); R07.9 Chest pain, unspecified; R79.89 Other specified abnormal findings of blood chemistry; R55 Syncope and collapse; E78.5 Hyperlipidemia, unspecified; F41.9 Anxiety disorder, unspecified; F32.A Depression, unspecified; M32.9 Systemic lupus erythematosus, unspecified; F12.90 Cannabis use, unspecified, uncomplicated; Z79.51 Long term (current) use of inhaled steroids; Z79.899 Other long term (current) drug therapy
CPT/HCPCS: 36415; 71046; 80048; 80053; 80061; 80307; 81001; 83036; 83690; 83735; 84443; 84484; 85025; 85380; 85610; 85730; 93005; 93306; 96361; 96372; 96374; 99285; A9270; G0378; G0379; J1650; J2060; J7030